=== PATIENT | female | born 1950 | race Caucasian/White ===

== ENCOUNTER 2019-06-02 21:53 | Inpatient (IN) | payer BC, MEDICARE ==
[~2019-06-02 21:53] MED LIST: ISOVUE-370 76%-LOCM 1 ML ONE
[2019-06-02 22:54] LABS: #Basophils 0.1 thou/uL (0.0-0.2); #Eosinphils 0.2 thou/uL (0.0-0.7); #Lymphocytes 3.2 thou/uL (1.20-3.40); #Monocytes 0.8 thou/uL (0.11-0.59); #Neutrophils 6.6 thou/uL (1.40-6.50); %Basophils 0.6 % (0.0-1.0); %Eosinophils 1.5 % (0.0-10.0); %Lymphocytes 29.9 % (21.0-51.0); %Monocytes 7.3 % (0.0-10.0); %Neutrophils 60.7 % (42.0-75.0); Hemoglobin 13.8 g/dL (12.0-16.0); Mean Corpuscular HGB CONC 32.2 g/dL (32.0-36.0); Mean Corpuscular Hemoglobin 31.2 pg (27.0-31.0); Mean Platelet Volume 7.9 fL (7.4-10.4); Platelet Count 256 thou/uL (130-400); Red Blood Cell (RBC) Count 4.43 mill/uL (4.20-5.40); White Blood Cell (WBC) Count 10.9 thou/uL (4.8-10.8)
[2019-06-02 23:16] LABS: ALT (SGPT) 14 U/L (8-55); AST (SGOT) 18 U/L (5-34); Albumin 3.3 g/dL (3.4-4.8); Alkaline Phosphatase 126 U/L (40-150); Anion Gap 16 mmol/L (10-20); BUN (Urea Nitrogen) 14 mg/dL (9.8-20.1); Bilirubin, Total 0.7 mg/dL (0.2-1.2); Calc. Creatinine Clearance 0 mL/min (70-130); Calcium 8.9 mg/dL (7.8-10.44); Carbon Dioxide 22 mmol/L (23-31); Chloride 102 mmol/L (98-107); Estimated GFR-MDRD 88; Globulin 2.7 g/dL (2.4-3.5); Glucose 105 mg/dL (80-115); Potassium 3.6 mmol/L (3.5-5.1); Sodium 136 mmol/L (136-145)
--- NOTE | 2019-06-03 00:04 | CT ---
CT ABDOMEN AND PELVIS WITH IV CONTRAST: 06/02/19 HISTORY: Urinary retention, abdominal pain. FINDINGS: Comparison is made with a noncontrasted exam of 4:54 p.m. from [facility]. There has been interval placement of a Wise catheter in the urinary bladder with decompression of th e hydronephrosis. There is enhancement of the joshua of the ureters. There is scarring of the left kid frederick. No renal mass is seen. There are atelectatic changes of the lung bases. Gallstones are again seen. The liver demonstrates de creased attenuation compared to the spleen consistent with fatty infiltration. No hepatic mass or ab normal biliary ductal dilatation identified. The spleen, pancreas, and adrenal glands are normal. No free air, free fluid or lymphadenopathy is seen in the abdomen or pelvis. There are vascular calci fications without evidence of aneurysmal dilatation or dissection of the abdominal aorta is seen. The small bowel loops are not abnormally dilated. A normal appearing appendix is present. There is si gmoid diverticulosis without diverticulitis. The patient is post hysterectomy. There are degenerativ e changes in the spine. IMPRESSION: 1. Cholelithiasis. 2. Fatty liver. 3. Interval placement of a Wise catheter in the urinary bladder with resolution of hydrouretero nephrosis since earlier exam of same date. 4. Enhancement of the ureter joshua suspicious for UTI. POS: DORA
--- NOTE | 2019-06-03 02:54 | CON ---
DATE OF CONSULTATION: This is Seth Huber PA-C dictating a report for Bruce Eaton MD. This is a 50-minute initial patient evaluation, in which greater than 50% of the exam was spent in counseling and coordinating the patient's care. Remainder of the exam was spent in review of the patient's medical records and review of appropriate imaging studies. CHIEF COMPLAINT: Generalized weakness with immobility over the past 3 to 4 months. HISTORY OF PRESENT ILLNESS: Ms. Palacios is a 69-year-old female, who presents to [facility] for the above complaints. Her niece is at bedside and apparently provides a lot of her care. The patient has a very complex medical history. Briefly, the patient over the past 4 or more months, has had difficulty ambulating, balance difficulties, and progressive weakness in all the extremities, worse in the legs than the arms. She has dealt with low back and bilateral hip pain with nondermatomal bilateral leg pain for likely more than a year, and she was placed on antidepressants and perhaps some narcotics that led to her being admitted to psychiatric units in the [facility]. The patient's family wanted the patient transferred back locally so that they could see her more often. Therefore, she was transferred to [place]. Nonetheless, she has been working with her physical therapy to help strengthen all the extremities, though again she has been nonambulatory over the past at least 3 months. She has also noticed urinary retention and fecal incontinence since that time. The patient and her niece are unclear on what her official diagnosis has been in regard to the generalized weakness, though states that she may have a component of cervical spinal stenosis. She has not had recent imaging of the cervical or thoracic spines. The patient isn't complaining much in the way of pain at this time. She also notes a long-standing history of intermittent neck pain, but no radicular symptoms into the arms. She has also noticed swallowing difficulties. She has a history of bleeding ulcer and hiatal hernia that may be contributing to her swallowing difficulties. The patient is apparently not on any blood thinners. Review of the patient's lumbar spine MRI shows some degenerative disk disease throughout the entire lumbar spine and some disk bulges at L5-S1, but nothing that is significantly compressive either centrally or foraminally that would explain the patient's stool, bowel and bladder issues, nor would it really explain the patient's subjective leg weakness. There does not appear to be any acute fracture noted on the STIR imaging or in review of the patient's abdominal CT scan. PHYSICAL EXAMINATION: The patient is awake, alert, and appropriate. She does not like to participate much in the exam and her niece provides a lot of the history, although she is oriented to person, place, and time. GCS is 15. She is a little bit sleepy as she has gotten some narcotic pain medication recently. She follows commands equally in all extremities. She has generalized weakness to all the extremities, but I would classify this as mild, and with good encouragement, she appears to have again mild weakness throughout all the extremities. Rajendra's is negative bilaterally. She also has random areas of hypersensitivity into the thighs and into the bilateral hands. She appears to have some contracture of the extension of the bilateral feet, but she is able to participate in dorsiflexion and plantar flexion, again, only has mild weakness bilaterally. She has intact sensation to light touch throughout the bilateral lower extremities. She does not appear to have any tenderness of the cervical spine. She has a Wise catheter in place and there is significant sediment and discolored urine in the Wise bag. IMPRESSION/DIAGNOSES: 1. Weakness of all the extremities, worse in the legs than the arms. 2. Impaired mobility. 3. History of bleeding ulcer. 4. Questionable psychiatric issue impeding ADLs. PLAN: At this time, I have discussed the patient's case and imaging with Dr. Eaton. There does not appear to be anything significantly compressive in the lumbar spine to explain the patient's symptoms. We will order urgent MRIs of the cervical and thoracic spines without contrast to determine if there is any other type of spinal cord compression. Otherwise, our medical colleagues will admit the patient and help with her urinary issues and help with low back pain control. We will follow up on her MRIs, but again I do not find anything emergent at this time given that the patient's symptoms have been longstanding. Please call with any changes in the patient's neurologic status. Job ID: [id number]
[2019-06-03 03:46] VITALS: BMI 24.0
[2019-06-03 04:11] LABS: Bacteria/HPF 3+ HPF (None Seen); Bilirubin Negative (Negative); Blood, Urine 3+ (Negative); Clarity Extra Turbid (Clear); Glucose, Urine (Dipstick) Normal (Negative); Leukocyte 500 Leu/uL (Negative); Nitrite Negative (Negative); Protein, Urine (Dipstick) 300 mg/dL (Neg-Trace); RBC/HPF Greater than 50 HPF (0-3); Squamous Epithelial None Seen HPF (0-3); Urobilinogen Normal mg/dL (Less than 2); WBC/HPF Greater than 50 HPF (0-3)
[2019-06-03 04:16] LABS: Urine Culture Reflex Yes Yes
[2019-06-03] MEDS ORDERED: Ondansetron ODT 4 MG TAB PO PRN (04:29)
[2019-06-03] MEDS ORDERED: Acetaminophen 325 MG TAB PO PRN (04:29)
[2019-06-03] MEDS ORDERED: hydrALAZINE 20 MG/ML VIAL SLOW IVP PRN (04:29)
[2019-06-03] MEDS ORDERED: HYDROcodone/Acetaminophen 5/325 mg Tablet PO PRN (04:29)
[2019-06-03] MEDS ORDERED: Ondansetron PF 4 MG/2 ML Vial IVP PRN (04:29)
[2019-06-03] MEDS ORDERED: Enoxaparin Sodium 40 MG/0.4 ML SYRINGE SC SCH ×2 (04:45→21:00)
--- NOTE | 2019-06-03 05:03 | HP ---
PRIMARY CARE PHYSICIAN: Dr. Dallas. CHIEF COMPLAINT: Progressive lower extremity weakness. HISTORY OF PRESENT ILLNESS: Ms. Palacios is a pleasant 69-year-old female who is an extremely poor historian. She says that if her niece was here, she would be able to give me more information, but apparently Ms. Palacios has a history of cervical spine disease, which has been known for sometime. Apparently, she, at some point, had difficulty with ambulation and [place] [facility] [place]. She says that she has gotten progressive pain in her back and legs as well as in the last 40 days she has been so weak that she has been practically bed-bound and also had difficulty with urinary retention and incontinence as well as fecal incontinence. She says that the pain got so bad that she could barely take it and this is when she asked the staff at the facility to bring her to the emergency room. In the ER in [place], she had a CT of the abdomen and pelvis, showing some cholelithiasis and fatty liver and also resolution of a distended urinary bladder. She had a Wise catheter placed there due to the urinary retention and she was transferred to our facility for further evaluation. She has been seen already in the ER by the Neurosurgery team and the plan is for possible surgical intervention after repeat MRIs have been obtained. Otherwise, the patient admits to falling frequently in the past before she was placed in a nursing facility. She denies any chest pain or difficulty breathing and no other symptoms. REVIEW OF SYSTEMS: CONSTITUTIONAL: No fevers or chills. No night sweats. No weight loss. HEENT: No headaches, no dizziness, no visual changes, no sore throat, no rhinorrhea, no neck pain, no adenopathy. PULMONARY: No hemoptysis, no cough, no wheezing. CARDIOVASCULAR: She denies any chest pain. No shortness of breath, no PND, no orthopnea. GASTROINTESTINAL: No abdominal pain, no nausea, no vomiting, no change in bowels. GENITOURINARY: No urinary frequency, hematuria, no hesitancy. MUSCULOSKELETAL: She notes lower extremity weakness bilaterally, but no joint pains. NEUROLOGIC: She has weakness in both her upper and lower extremities as well as urinary retention. SKIN AND INTEGUMENT: No skin changes. No rashes. PAST MEDICAL HISTORY: Significant for gastroesophageal reflux disease, anxiety and depression, coronary artery disease, hypothyroidism, and schizophrenia. PAST SURGICAL HISTORY: She has had hysterectomy. ALLERGIES: TO CODEINE. SOCIAL HISTORY: She is , has 2 children. She is a nonsmoker. She resides at the [facility]. With regard to code status, she would want CPR, but she would not want to be put on a ventilator, so it is do not intubate. FAMILY HISTORY: Negative. MEDICATIONS: Unknown. PHYSICAL EXAMINATION: GENERAL: She is alert and oriented. She appears to be in no acute distress. She is well developed and well nourished. VITAL SIGNS: Blood pressure was 98/76, heart rate 90, respiratory rate of 18, temperature is 98.7. HEENT: Pupils are equal, round, and reactive. Extraocular muscles are intact. Sclerae anicteric. Throat; no erythema, no exudates. NECK: No adenopathy, no bruits. LUNGS: Clear. There is no wheezing, no rales, no rhonchi. CARDIOVASCULAR: She has a normal S1 and S2. There is no S3 or S4. No murmurs, clicks, or rubs. ABDOMEN: Obese. It is soft, nontender, and nondistended. Positive for bowel sounds. No rebound or guarding. EXTREMITIES: There is no clubbing or cyanosis. No edema. NEUROLOGICAL: She has some weakness in both lower extremities as well as decrease in the ability to dorsiflex the foot. Her hand potter strength in both hands is also weaker as well, although she is able to abduct and adduct her arms. LABORATORY RESULTS: Sodium is 136, potassium 3.6, chloride is 102, CO2 is 22, BUN of 14, creatinine 0.67, glucose is 105. White blood cell count 10.9, hemoglobin 13.8, hematocrit is 43, platelet count is 256. On her EKG, she has a left bundle-branch block. ASSESSMENT: 1. This is a pleasant 69-year-old female who presents with progressive weakness in her lower extremities and pain as well as weakness in her upper extremities and known cervical spine disease. She is currently being evaluated by Neurosurgery and could potentially require surgery. We will continue to help with symptom management with regard to pain. 2. History of cardiomyopathy. In her records, we can see that she had a cardiac catheterization back in 2011. At that time, it demonstrated minimal coronary artery disease, but evidence of a cardiomyopathy. On her EKG, she has a left bundle-branch block. She may require surgery. Therefore, we will get an echocardiogram to assess her ejection fraction and she could potentially require Cardiology evaluation if surgery is needed. 3. Hypothyroidism. She appears to be clinically euthyroid. We will need to reconcile and restart home medications as indicated. 4. She will be placed on deep venous thrombosis as well as gastrointestinal prophylaxis. Job ID: [id number]
[2019-06-03] MEDS ORDERED: Sodium Chloride 0.9% 1,000 ML IV SCH (05:15)
[2019-06-03] MEDS: cefTRIAXone\\ROCEPHIN 1 GM in Sodium Chloride 0.9% 100 ML IVPB SCH (05:31)
--- NOTE | 2019-06-03 10:44 | MRI ---
MRI thoracic spine without contrast: 06/03/2019 HISTORY: Weakness TECHNIQUE: Multiplanar multisequence MR imaging of the thoracic spine obtained without contrast FINDINGS: The sagittal STIR imaging demonstrates no focal area of osseous marrow edema. Thoracic vert ebral body height and alignment appears within normal limits. There is no anterolisthesis or retrolisthesis seen within the thoracic spine. There is no significant central canal stenosis at any level within the thoracic spine. There is mild disc space narrowing, disc desiccation, and disc bulge at T3-4 and T5-6 with minimal as sociated central canal stenosis. Incidental note is made of cholelithiasis. No abnormal signal intensity is identified within the thor acic cord. No significant neural foraminal stenosis is noted at any level on either side within the thoracic spine.. There is a focal area of cortical thinning/scarring involving the upper pole of the left kidney. Ther e is a tiny T2 hypointense lesion within the upper pole of the left kidney measuring 4 mm. This does not meet criteria for a cyst but is very small and difficult to fully characterize. Perhaps a fo llow-up renal ultrasound would be beneficial. IMPRESSION: No significant central canal or neural foraminal stenosis noted within the thoracic spine . Small lesion within the upper pole left kidney which may be better assessed via ultrasound. Cholelith iasis.
--- NOTE | 2019-06-03 11:09 | CT ---
CT cervical spine: 06/03/2019 COMPARISON: None HISTORY: Cervical radiculopathy TECHNIQUE: Axial CT imaging at 2.5 mm intervals from skull base through lung apices with coronal and sagittal reformatted imaging FINDINGS: The imaged lung apices are unremarkable. Occipital condyles are intact. There is prominent degenerative change at the atlantoaxial interspace. Evaluation for central canal and/or neural foraminal stenosis was better performed on recent MRI. C2-3: There is disc space narrowing with degenerative endplate change and anterior osteophyte formati on. Mild disc bulge. No osseous cause of significant central canal or neural foraminal stenosis. C3-4: Disc space narrowing with degenerative endplate change and disc bulge present. Bilateral uncove rtebral osteophyte formation with mild left and moderate right neural foraminal stenosis. C4-5: Disc space narrowing and degenerative endplate change with posterior disc osteophyte complex an d prominent bilateral uncovertebral osteophyte. Severe central canal and bilateral neural foraminal stenosis. C5-6: There is disc space narrowing with degenerative endplate change and disc osteophyte complex cau sing moderate/severe central canal stenosis. Uncovertebral osteophyte formation noted bilaterally with moderate/severe bilateral neural foraminal stenosis, right greater than left. C6-7: There is disc space narrowing and degenerative endplate change with posterior disc osteophyte c omplex causing at least moderate central canal stenosis. Uncovertebral osteophyte formation noted with severe left and moderate right neural foraminal stenosis C7-T1: No osseous cause of significant central canal or neural foraminal stenosis. No worrisome lytic or blastic bone lesion. No acute fracture or dislocation. IMPRESSION: Severe cervical spine degenerative change as detailed above.
[2019-06-03 11:21] LABS: #Eosinphils 0.1 thou/uL (0.0-0.7); #Lymphocytes 3.3 thou/uL (1.20-3.40); #Monocytes 0.7 thou/uL (0.11-0.59); %Basophils 0.2 % (0.0-1.0); %Eosinophils 1.5 % (0.0-10.0); %Lymphocytes 35.8 % (21.0-51.0); %Neutrophils 54.5 % (42.0-75.0); Hemoglobin 12.3 g/dL (12.0-16.0); Mean Corpuscular HGB CONC 32.3 g/dL (32.0-36.0); Mean Corpuscular Hemoglobin 31.3 pg (27.0-31.0); Mean Corpuscular Volume 96.8 fL (78.0-98.0); Mean Platelet Volume 7.7 fL (7.4-10.4); Platelet Count 244 thou/uL (130-400); RBC Distribution Width 14.9 % (11.5-14.5); Red Blood Cell (RBC) Count 3.91 mill/uL (4.20-5.40); White Blood Cell (WBC) Count 9.2 thou/uL (4.8-10.8)
[2019-06-03 11:29] LABS: INR-International Normal Ratio 1.1; PTT 36.6 SEC (22.9-36.1); Prothrombin Time 14.6 SEC (12.0-14.7)
[2019-06-03] MEDS: Mometasone/Formoterol 120 PUFF INHALER INH SCH ×2 (11:29→20:04)
[2019-06-03 11:42] LABS: ALT (SGPT) 14 U/L (8-55); AST (SGOT) 17 U/L (5-34); Albumin 2.8 g/dL (3.4-4.8); Alkaline Phosphatase 104 U/L (40-150); Anion Gap 13 mmol/L (10-20); BUN (Urea Nitrogen) 10 mg/dL (9.8-20.1); Bilirubin, Total 0.5 mg/dL (0.2-1.2); Calc. Creatinine Clearance 101 mL/min (70-130); Calcium 8.2 mg/dL (7.8-10.44); Carbon Dioxide 23 mmol/L (23-31); Chloride 100 mmol/L (98-107); Estimated GFR-MDRD Greater than 90; Globulin 2.7 g/dL (2.4-3.5); Glucose 79 mg/dL (80-115); Potassium 3.6 mmol/L (3.5-5.1); Protein, Total 5.5 g/dL (6.0-8.3); Sodium 132 mmol/L (136-145)
--- NOTE | 2019-06-03 11:46 | MRI ---
CERVICAL SPINE MRI WITHOUT CONTRAST: Date: 06/03/19 COMPARISON: None. HISTORY: Bilateral leg weakness. TECHNIQUE: Multiplanar, multisequence MR imaging of the cervical spine obtained without contrast. FINDINGS: Detailed assessment on the sagittal and axial imaging is limited on the basis of significant persiste nt patient motion artifact. The STIR imaging demonstrates no focal area of osseous marrow edema. Cran iocervical junction and cervicothoracic junction appear intact. There is significant degenerative kenny nge at the atlantoaxial interspace. C2-3: There is disc space narrowing with disc desiccation, mild disc bulge, and at least mild centra l canal stenosis. Bilateral facet and uncovertebral osteophyte formation with mild/moderate bilateral neural foraminal stenosis. C3-4: There is disc space narrowing, disc desiccation, and disc bulge with moderate/severe central c anal stenosis. There is significant bilateral neural foraminal stenosis on the basis of facet and unc overtebral osteophyte formation. C4-5: There is disc space narrowing, disc desiccation, and disc osteophyte complex. There is severe central canal stenosis and severe bilateral neural foraminal stenosis on the basis of facet and uncov ertebral osteophyte formation. C5-6: There is disc space narrowing, disc desiccation, and disc osteophyte complex with severe centr al canal stenosis. Bilateral facet and uncovertebral osteophyte formation noted with severe bilateral neural foraminal stenosis. C6-7: Disc space narrowing, disc desiccation, and disc osteophyte complex causes moderate/severe jaden tral canal stenosis. On the basis of facet and uncovertebral osteophyte formation, there is severe le ft and moderate right neural foraminal stenosis. C7-T1: No significant central canal or neural foraminal stenosis. Motion artifact limits detailed assessment of the cervical cord. Of note, there is a degree of cord flattening on the basis of central canal stenosis at C3-4, C4-5, C 5-6, and C6-7, most prominent at C4-5 and C5-6. IMPRESSION: Severe degenerative change involving the cervical spine with multilevel severe central canal and neur al foraminal stenosis as detailed above. Detailed assessment is limited secondary to persistent patie nt motion artifact. POS: OFF
[2019-06-03 12:00] LABS: Creatinine, Urine 47.4 mg/dL (47-110)
--- NOTE | 2019-06-03 13:28 | ULT ---
Bilateral lower extremity venous Doppler ultrasound: 06/03/2019 COMPARISON: None HISTORY: Impaired mobility, assess for deep venous thrombosis TECHNIQUE: Multiplanar grayscale sonographic imaging of the venous structures of bilateral lower extr emities obtained with color flow and spectral analysis FINDINGS: The right common femoral vein, greater saphenous vein, profunda femoral vein, femoral vein, popliteal vein, and posterior tibial vein. There is extensive deep venous thrombosis involving the left lower extremity, including the left comm on femoral vein, femoral vein, and popliteal vein with extension into the posterior tibial vein. Greater saphenous vein and profunda femoral vein appear patent. IMPRESSION: Extensive left lower extremity deep venous thrombosis. Dr. Raygoza made aware via phone at 1:25 PM 06/03/2019.
[2019-06-03] MEDS ORDERED: Ketorolac Tromethamine 30 MG/ML VIAL IVP PRN ×2 (13:56→17:09)
--- NOTE | 2019-06-03 14:01 | PDOC.HOSPP ---
- Subjective Encounter Date: 06/03/19 Subjective: she is still complaining of pain from neck down to her lower back, she has no sob, no chest pain. - Objective Vital Signs & Weight: Vital Signs (12 hours) Temp Pulse Resp BP Pulse Ox 06/03/19 13:00 98.0 F 91 16 110/72 94 L 06/03/19 08:44 98.0 F 92 16 112/73 98 06/03/19 08:00 94 L 06/03/19 05:32 93 103/66 06/03/19 02:52 97.4 F L 94 18 107/71 94 L 06/03/19 02:05 94 L Weight Weight 144 lb 9 oz I&O: 06/02/19 06/03/19 06/04/19 06:59 06:59 06:59 Intake Total 500 Output Total 300 Balance 200 Result Diagrams: 06/03/19 11:10 06/03/19 11:10 Hospitalist ROS - Medication Medications: Active Medications Generic Name Dose Route Start Last Admin Trade Name Freq PRN Reason Stop Dose Admin Hydrocodone Bitart/Acetaminophen 1 tab 06/03/19 04:29 06/03/19 12:06 [place] 5/325 PO 1 tab Q4H PRN Administration Moderate Pain (4-6) Ceftriaxone Sodium 1 gm/ 100 mls @ 200 mls/hr 06/03/19 06:00 06/03/19 05:31 Sodium Chloride IVPB 100 mls 0600 ANDREA Administration Mometasone Furoate/Formoterol Fumar 2 puff 06/03/19 06:30 06/03/19 11:29 Dulera 200 Mcg/5 Mcg Inhaler INH Not Given BID-RT ANDREA - Exam General Appearance: NAD, awake alert Eye: PERRL, anicteric sclera ENT: normocephalic atraumatic, no oropharyngeal lesions, moist mucosa Neck: symmetric Heart: RRR, no murmur, no gallops, no rubs, normal peripheral pulses Respiratory: CTAB, no wheezes, no rales, no ronchi, normal chest expansion, no tachypnea, normal percussion Gastrointestinal: soft, non-tender, non-distended, normal bowel sounds, no palpable masses, no hepatomegaly, no splenomegaly, no bruit Extremities: 1+ LE edema (on the left leg, with extended foot.) Skin: normal turgor Neurological: CN's grossly intact, normal sensation to touch, no weakness, no focal deficits, no new deficit Hosp A/P (1) DVT (deep venous thrombosis) Code(s): I82.409 - ACUTE EMBOLISM AND THOMBOS UNSP DEEP VN UNSP LOWER EXTREMITY Status: Acute (2) Hydronephrosis Code(s): N13.30 - UNSPECIFIED HYDRONEPHROSIS Status: Acute (3) UTI (urinary tract infection) Status: Acute (4) Cervical stenosis of spine Code(s): M48.02 - SPINAL STENOSIS, CERVICAL REGION Status: Chronic (5) Back pain Code(s): M54.9 - DORSALGIA, UNSPECIFIED Status: Chronic - Plan musculoskeletal---she has neck pain, and back pain, will start Toradol, increase hydrocodone ( although she has an allergy to codeine she was able to tolerate the hydrocodone ). Neurosurgery saw her and she needs to have surgery on Wednesday. DVT--extensive DVT in Left LE, reported to me an hour ago, I have discussed that finding with Neurosurgery, there was an emphasis on the need for surgery and that an IVC filter should be done and no anticoagulation should be used so that the surgery is not delayed. Renal ---UTI--on Rocephin, Nephro is following, renal ultrasound and urinary studies are being done. IVF will be stopped since she is eating and labs are good. Cradiac--echocardiogram is pending.
--- NOTE | 2019-06-03 14:06 | PRG ---
DATE OF SERVICE: 06/03/2019 This is a 50-minute initial hospital visit note, in which 50 minutes were spent reviewing the imaging record, evaluation and examination of the patient, formulation of plan. Greater than 50% time was spent in counseling on Fe Palacios. CHIEF COMPLAINT: Concern of quadriparesis with progressive urinary retention, urinary tract infection, and nephropathy with prolonged immobilization. HISTORY OF PRESENT ILLNESS: Ms. Palacios is a 69-year-old woman, who evidently has been hospitalized as of late multiple times for yet unknown reasons. She was transferred here after lumbar spine MRI in [place] was done, which really revealed no worrisome stenosis. However, the patient has had what appears to be progressive quadriparesis with essentially not being able to ambulate for weeks now. She also was found to have a florid urinary tract infection along with hydronephrosis. Upon transfer, I requested cervical spine MRI and thoracic spine MRI, where the thoracic MRI demonstrates no evidence of worrisome neural element compromise, and the cervical MRI demonstrates multilevel severe stenosis. I suspect that she has essentially a myelopathic presentation as the reason for her quadriparesis and urinary issues. PHYSICAL EXAMINATION: She is alert. She is appropriate. She has a somewhat blunted affect. She does lift both upper extremities above off the bed in an antigravity fashion and appears to have mild hand intrinsic weakness. However, in the lower extremity, she does not move her left lower extremity for me at all, and her right lower extremity is significantly weak. Again, this is bilateral leg greater than bilateral upper extremity weakness. IMPRESSION AND PLAN: I have let the patient and her family member in [place] know via phone call that she has a myelopathy that needs to be addressed surgically. If we do nothing, then there is no hope for this patient to regain any neurologic function in my opinion. Further, this leads to increasing risk for urosepsis, given her significant urinary retention, hydronephrosis, and urinary tract infection. We will obtain an ultrasound of the lower extremities and continue on prophylactic Lovenox at this point. We will also obtain a CT scan of the cervical spine for operative planning. The surgery is to be done this upcoming Wednesday, which will give us time to treat her urinary tract infection and have Nephrology weigh in regard to her nephropathy. The surgery will be a C3-C7 ACDF followed by C2-C7 laminectomy, posterior facetectomy, foraminotomies with C3-C7 fusion. I will discuss this more with the patient and her family, but suffice to say this is a large surgery, but the patient's stenosis is quite profound and at her age, again, if nothing is done, her prognosis is exceedingly poor for any type of recovery. DIAGNOSES: 1. Multilevel cervical stenosis with myelopathy. 2. Urinary tract infection with nephropathy. Job ID: [id number]
[2019-06-03] MEDS: HYDROcodone/Acetaminophen 5/325 mg Tablet PO PRN ×2 (15:10→20:47)
[2019-06-03] MEDS ORDERED: Zolpidem Tartrate 5 MG TAB PO PRN (17:10)
--- NOTE | 2019-06-03 23:27 | CON ---
DATE OF CONSULTATION: 06/03/2019 REQUESTING PHYSICIAN: Dr. Garcia. OTHER CONSULTING PHYSICIAN: Dr. Eaton. PRIMARY CARE PHYSICIAN: Dr. Mary Watts. CHIEF COMPLAINT: Extremity weakness. HISTORY OF PRESENT ILLNESS: The patient is a 69-year-old woman with several weeks or perhaps even months of progressive quadriparesis. It has been few weeks since she has been able to walk. She is developing a flexion contracture of the right ankle, has developed fecal incontinence and urinary retention. She is found to have multilevel cervical spinal canal stenosis and is currently receiving Rocephin for urinary tract infection prior to surgical decompression. Screening lower extremity Dopplers demonstrated extensive deep venous thrombosis in her left leg. PAST MEDICAL HISTORY: Significant for GE reflux disease, coronary artery disease, hypothyroidism, anxiety, depression, and schizophrenia. HOME MEDICATIONS: 1. Carafate. 2. Seroquel. 3. Protonix. 4. Ativan. 5. Advair Diskus. 6. Motrin. ALLERGIES: SHE REPORTS ALLERGIES TO CODEINE AND PINEAPPLE. SOCIAL HISTORY: She does not smoke. REVIEW OF SYSTEMS: Positive for the above-mentioned extremity weakness and decreased mobility. PHYSICAL EXAMINATION: GENERAL: She is somewhat flat in affect and she is essentially bed-bound. VITAL SIGNS: Heart rate is 91, blood pressure 110/72, and temperature is 98.0. On 1 L nasal cannula, O2 saturations of 94% to 98%. LUNGS: She has clear breath sounds. HEART: Regular rate and rhythm. ABDOMEN: Soft and nontender. EXTREMITIES: She has weakness in all 4 extremities. She has a footdrop on the right side. There is no obvious swelling or tenderness to her extremities. Her venous Doppler shows a clear right-sided system but thrombus extending from the posterior tibial to the common femoral vein on the left. IMAGING: Her CT scan of the abdomen shows that her right and left renal veins drain into the inferior vena cava about the level of the midbody of L1. LABORATORY DATA: Her white count was 10.9, hemoglobin 13.8, and platelets 256,000. PT was 14.6, INR 1.1, and PTT 36.6. Electrolytes were normal. Creatinine 0.67. Albumin 3.3. IMPRESSION AND RECOMMENDATION: Deep venous thrombosis in a patient with at least two contraindications to anticoagulation, her impending cervical spine decompression and her recent GI bleeding and it is apt to be sometime before she will be a candidate for anticoagulation or her mobility will be sufficiently recovered that she will no longer be at risk for DVT. We will plan on vena cava filter placement. Job ID: [id number]
[2019-06-04 04:24] LABS: #Eosinphils 0.3 thou/uL (0.0-0.7); #Lymphocytes 2.7 thou/uL (1.20-3.40); #Monocytes 0.7 thou/uL (0.11-0.59); #Neutrophils 3.9 thou/uL (1.40-6.50); %Basophils 0.3 % (0.0-1.0); %Eosinophils 3.6 % (0.0-10.0); %Lymphocytes 35.6 % (21.0-51.0); %Monocytes 8.8 % (0.0-10.0); %Neutrophils 51.7 % (42.0-75.0); Hemoglobin 12.3 g/dL (12.0-16.0); Mean Corpuscular HGB CONC 33.8 g/dL (32.0-36.0); Mean Corpuscular Hemoglobin 32.3 pg (27.0-31.0); Mean Corpuscular Volume 95.6 fL (78.0-98.0); Mean Platelet Volume 7.8 fL (7.4-10.4); Platelet Count 230 thou/uL (130-400); RBC Distribution Width 14.6 % (11.5-14.5); Red Blood Cell (RBC) Count 3.81 mill/uL (4.20-5.40); White Blood Cell (WBC) Count 7.5 thou/uL (4.8-10.8)
[2019-06-04 04:41] LABS: Anion Gap 12 mmol/L (10-20); BUN (Urea Nitrogen) 9 mg/dL (9.8-20.1); Calc. Creatinine Clearance 107 mL/min (70-130); Calcium 8.5 mg/dL (7.8-10.44); Carbon Dioxide 25 mmol/L (23-31); Chloride 100 mmol/L (98-107); Estimated GFR-MDRD Greater than 90; Glucose 94 mg/dL (80-115); Potassium 3.2 mmol/L (3.5-5.1); Sodium 134 mmol/L (136-145)
[2019-06-04] MEDS: cefTRIAXone\\ROCEPHIN 1 GM in Sodium Chloride 0.9% 100 ML IVPB SCH (06:08)
[2019-06-04] MEDS ORDERED: Lidocaine 1% (PF) 30 ML VIAL ONE (07:10)
[2019-06-04] MEDS ORDERED: Iopamidol 370 76% 50 ML VIAL FS ONE (07:26)
[2019-06-04] MEDS ORDERED: Enoxaparin Sodium 40 MG/0.4 ML SYRINGE SC SCH (09:00)
--- NOTE | 2019-06-04 09:04 | OP ---
DATE OF PROCEDURE: 06/04/2019 PROCEDURE PERFORMED: Inferior venacavogram and Cordis Trapease inferior vena cava filter placement with ultrasonographic and fluoroscopic guidance. PREOPERATIVE DIAGNOSIS: Left lower extremity deep venous thrombosis with contraindication to anticoagulation. POSTOPERATIVE DIAGNOSIS: Left lower extremity deep venous thrombosis with contraindication to anticoagulation. ANESTHESIA: 1% lidocaine, local anesthesia. INDICATIONS: The patient is a 69-year-old woman, developing quadriparesis over the last several weeks or even months. That is attributed to multilevel cervical spinal canal stenosis. Screening lower extremity Doppler showed extensive DVT formation in her left lower extremity. She has had her recent episode of GI bleeding and is to soon undergo cervical spinal decompression constituting contraindications to anticoagulation. FINDINGS: The renal veins drained into the vena cava at the level of the lower edge of L1. The superior tip of the filter was placed little above the midbody of L2. TOTAL CONTRAST USED: 10 mL of Isovue. TOTAL FLUOROSCOPY TIME: 1.7 minutes. DESCRIPTION OF PROCEDURE: After informed consent was obtained, the patient was positioned on the catheterization laboratory technician table and her groins were prepped and draped in sterile fashion. The patient's femoral pulse was palpated and then ultrasonographically, the femoral vasculature was identified. Compressibility of the common femoral vein was verified. The skin and subcutaneous tissues in line with the femoral vein were infiltrated with lidocaine and then with ultrasonographic guidance, the common femoral vein was cannulated with a large-bore needle. A guidewire was placed and caval positioning of the wire was confirmed by fluoroscopy. A small skin alex was made and dilator and introducer sheath were placed. The tip of the introducer sheath was positioned at the lower edge of L1 and venacavogram was performed with 10 mL of Isovue, which demonstrated drainage of the renal veins. The right renal vein drain into the vena cava at the inferior edge of L1 and the left renal vein drained into it a little superior to that. The tip of the introducer sheath was withdrawn back to the level of the mid body of L2 and the filter device was advanced through it when it began to emerge from the sheath. The sheath was withdrawn and then the sheath was removed and hemostasis was achieved with direct pressure. The patient was returned to her room. Job ID: [id number]
[2019-06-04] MEDS: Mometasone/Formoterol 120 PUFF INHALER INH SCH ×2 (09:26→19:11)
[2019-06-04] MEDS ORDERED: Potassium Chloride 20 MEQ TAB PO SCH (09:30)
--- NOTE | 2019-06-04 09:40 | PDOC.HOSPP ---
- Subjective Encounter Date: 06/04/19 Subjective: She is post IVC filter placement today. She does not complain of any pain, her pain did improve since yesterday. - Objective Vital Signs & Weight: Vital Signs (12 hours) Temp Pulse Resp BP Pulse Ox 06/04/19 04:11 97.5 F L 90 16 121/77 94 L Weight Weight 144 lb 9 oz I&O: 06/03/19 06/04/19 06/05/19 06:59 06:59 06:59 Intake Total 500 1650 Output Total 300 500 400 Balance 200 1150 -400 Result Diagrams: 06/04/19 04:01 06/04/19 04:01 Hospitalist ROS - Medication Medications: Active Medications Generic Name Dose Route Start Last Admin Trade Name Freq PRN Reason Stop Dose Admin Hydrocodone Bitart/Acetaminophen 2 tab 06/03/19 13:59 06/03/19 20:47 [place] 5/325 PO 2 tab Q4H PRN Administration Moderate Pain (4-6) Enoxaparin Sodium 40 mg 06/04/19 09:00 06/04/19 09:23 Lovenox SC 40 mg DAILY ANDREA Administration Ceftriaxone Sodium 1 gm/ 100 mls @ 200 mls/hr 06/03/19 06:00 06/04/19 06:08 Sodium Chloride IVPB 100 mls 0600 ANDREA Administration Mometasone Furoate/Formoterol Fumar 2 puff 06/03/19 06:30 06/04/19 09:26 Dulera 200 Mcg/5 Mcg Inhaler INH Not Given BID-RT ANDREA Zolpidem Tartrate 5 mg 06/03/19 17:10 06/03/19 20:44 Ambien PO 5 mg HSPRN PRN Administration Insomnia - Exam General Appearance: NAD, awake alert Eye: PERRL, anicteric sclera ENT: normocephalic atraumatic, no oropharyngeal lesions, moist mucosa Neck: supple, symmetric, no JVD, no thyromegaly, no lymphadenopathy, no carotid bruit Heart: RRR, no murmur, no gallops, no rubs, normal peripheral pulses Respiratory: CTAB, no wheezes, no rales, no ronchi, normal chest expansion, no tachypnea, normal percussion Gastrointestinal: soft, non-tender, non-distended, normal bowel sounds, no palpable masses, no hepatomegaly, no splenomegaly, no bruit Extremities: 1+ LE edema Skin: normal turgor, no lesions, no rashes Neurological: CN's grossly intact, normal sensation to touch, no weakness, no focal deficits, no new deficit Hosp A/P (1) DVT (deep venous thrombosis) Code(s): I82.409 - ACUTE EMBOLISM AND THOMBOS UNSP DEEP VN UNSP LOWER EXTREMITY Status: Acute (2) Hydronephrosis Code(s): N13.30 - UNSPECIFIED HYDRONEPHROSIS Status: Acute (3) UTI (urinary tract infection) Status: Acute (4) Cervical stenosis of spine Code(s): M48.02 - SPINAL STENOSIS, CERVICAL REGION Status: Chronic (5) Back pain Code(s): M54.9 - DORSALGIA, UNSPECIFIED Status: Chronic - Plan psych--she is on psych meds but we are unable to verify them, seems to be doing well off meds. musculoskeletal---she has neck pain, and back pain, will start Toradol, increase hydrocodone ( although she has an allergy to codeine she was able to tolerate the hydrocodone ). Neurosurgery saw her and she needs to have surgery on Wednesday.family is meeting with Dr Eaton at 10:00 am today her pain seems well controlled. DVT--extensive DVT in Left LE, reported to me an hour ago, I have discussed that finding with Neurosurgery, there was an emphasis on the need for surgery and that an IVC filter was done today and no anticoagulation should be used so that the surgery is not delayed. Renal ---UTI--on Rocephin, Nephro is following, renal ultrasound and urinary studies are being done. her k was low, will replace and repeat in am. Cradiac--echocardiogram is pending. in 2011 she was diagnosed with non ischemic CABIN OUTFITTER with EF of 35 %, I did contact our drupal web developer to read the echo done yesterday. since more then one month she wasn't very active but never had a problem with chest pain or sob as per her . I believe that she is at increased risk for jr-operative complications. I relayed that to her and to Dr Eaton.
[2019-06-04] MEDS ORDERED: traZODone HCl 50 MG TAB PO PRN (09:52)
--- NOTE | 2019-06-04 12:18 | PRG ---
DATE OF SERVICE: 06/04/2019 A 25-minute subsequent visit note. SUBJECTIVE: Suzanne has been found to have severe multilevel spinal cord compression as the culprit of why she has become progressively more quadriparetic over weeks. Her family is at baseline. We have extensively discussed the plan, which is an anterior-posterior surgical decompression from C3 through C7 postoperatively with possible extension up to C2 with decompression posteriorly. She has circumferential stenosis, and I should note that her CT or her MRI of the thoracic spine did not demonstrate any evidence of worrisome stenosis. Of note, she did have a cardiac dysfunction in 2011, and our medicine colleagues are kindly evaluating her in regard to her cardiac risk. We are continuing Lovenox at this point. Unfortunately, she was found to have a DVT extensively in her left lower extremity yesterday. This obviously led to an IVC filter. IVC filter placement yesterday. I am not surprised given the patient's prolonged immobilization. Goals, indications, risks, alternatives, and complications were discussed in detail regarding C3 through C7 ACDF and C3 through C7 laminectomy and fusion with possible extension of decompression up to C2. Understand that the risks are up to and including, but not limited to, wound healing issues such as infection, dehiscence, CSF leak, temporary and permanent neurologic deficit, medical and surgical complications that would require further intervention. They understand all these and wished that we proceed tomorrow. They also understand if we do nothing that she will likely progress to complete quadriplegia with terrible prognosis. DIAGNOSES: 1. Severe cervical stenosis with progressive myelopathy. 2. Extensive left lower extremity deep venous thrombosis. 3. History of ischemic cardiomyopathy. Job ID: [id number]
[2019-06-04] MEDS ORDERED: Magnesium 2 GM/50 ML 2 GM in Premix Bag 1 BAG IVPB SCH (19:45)
--- NOTE | 2019-06-04 21:26 | ULT ---
BILATERAL RENAL ULTRASOUND: History: Acute renal insufficiency. FINDINGS: The right kidney measures 11 cm in length and the left kidney measures 10 cm. No hydronephrosis is se en on either side. The urinary bladder is empty with Wise catheter in place. There is a 6 mm echogen ic focus in the left kidney, likely calculus. IMPRESSION: Probable nonobstructing left renal calculus. POS: [facility]
--- NOTE | 2019-06-05 00:37 | PRG ---
DATE OF SERVICE: 06/04/2019 SUBJECTIVE: A 69-year-old female being seen for acute kidney injury. The patient denies any nausea, vomiting, or chest pain. PHYSICAL EXAMINATION: GENERAL: The patient is awake and alert. VITAL SIGNS: Pulse 75, breathing 16, blood pressure was 112/76. GENERAL APPEARANCE AND MENTAL STATUS: Fair. HEAD/NECK: Normocephalic. Atraumatic. EYES: EOMI. No deformity. EARS: Clear. No ulcers. NOSE: Intact. No lesions. MOUTH: Clear. No discharge. THROAT: Clear. No exudate. LUNGS: Clear. No crackles. CARDIAC: S1, S2. No rub. ABDOMEN: Benign. Bowel sounds positive. GENITALIA/RECTUM: Wise absent. BACK/EXTREMITIES: Edema 0+. NEUROLOGICAL: Alert and motor intact. SKIN: LYMPHATICS: LABORATORY DATA: Show creatinine 0.5, potassium 3.2. ASSESSMENT: 1. Acute kidney injury with hydronephrosis, improved. 2. Left renal calculus, the patient will need Urology consultation. Hydrate aggressively. 3. Hypokalemia. Recommend high potassium diet. 4. Severe mitral regurgitation. The patient will need Cardiology evaluation. Job ID: [id number]
[2019-06-05 02:11] LABS: Hemoglobin 12.7 g/dL (12.0-16.0)
[2019-06-05 02:35] LABS: Anion Gap 13 mmol/L (10-20); BUN (Urea Nitrogen) 8 mg/dL (9.8-20.1); Calc. Creatinine Clearance 115 mL/min (70-130); Calcium 8.2 mg/dL (7.8-10.44); Carbon Dioxide 23 mmol/L (23-31); Chloride 101 mmol/L (98-107); Estimated GFR-MDRD Greater than 90; Glucose 97 mg/dL (80-115); Potassium 3.8 mmol/L (3.5-5.1); Sodium 133 mmol/L (136-145)
[2019-06-05] MEDS: cefTRIAXone\\ROCEPHIN 1 GM in Sodium Chloride 0.9% 100 ML IVPB SCH (06:07)
[2019-06-05] MEDS: Mometasone/Formoterol 120 PUFF INHALER INH SCH ×2 (06:20→18:42)
[2019-06-05] MEDS ORDERED: Midazolam HCl 2 mg/2 ml Vial ONE (07:14)
[2019-06-05] MEDS ORDERED: Fentanyl 250 MCG/5 ML VIAL ONE (07:14)
[2019-06-05] MEDS ORDERED: Sodium Chloride 0.9% 10 ML ONE ×2 (07:27)
[2019-06-05] MEDS ORDERED: Glycopyrrolate 0.2 MG/ML 5 ML SYRINGE ONE (07:34)
[2019-06-05] MEDS ORDERED: PHENYLEPHRINE-NS 100 MCG/ML 10 ML SYRINGE ONE (07:34)
[2019-06-05] MEDS ORDERED: ePHEDrine 50 MG/ML VIAL ONE (07:34)
[2019-06-05] MEDS ORDERED: Metoprolol Tartrate 5 MG/5 ML VIAL ONE (07:34)
[2019-06-05] MEDS ORDERED: Ondansetron PF 4 MG/2 ML Vial ONE (07:34)
[2019-06-05] MEDS ORDERED: Vecuronium 10 MG VIAL ONE (07:34)
[2019-06-05] MEDS ORDERED: PROPOFOL 200 MG/20 ML VIAL ONE (07:34)
[2019-06-05] MEDS ORDERED: Lidocaine 1% PF 5 ML VIAL ONE (07:34)
[2019-06-05] MEDS ORDERED: Rocuronium Bromide 10 MG/ML (10ML VIAL) ONE (07:34)
[2019-06-05] MEDS ORDERED: Thrombin 5000 UNITS/5 ML VIAL ONE (07:38)
[2019-06-05] MEDS ORDERED: Sodium Chloride For Inhalation 0.9% 3 ML NEB ONE (07:44)
[2019-06-05] MEDS ORDERED: Fentanyl 100 MCG/2 ML VIAL ONE (14:05)
[2019-06-05] MEDS ORDERED: Labetalol HCl 100 MG/20 ML VIAL ONE (14:15)
[2019-06-05] MEDS ORDERED: Ondansetron HCl/PF 4 MG/2 ML Vial IVP PRN (14:18)
[2019-06-05] MEDS ORDERED: HYDROmorphone 2 MG/ML VIAL SLOW IVP PRN (14:18)
[2019-06-05] MEDS ORDERED: Promethazine HCl 25 MG/ML VIAL SLOW IVP PRN (14:18)
[2019-06-05] MEDS ORDERED: Promethazine HCl 25 MG/ML VIAL IM PRN (14:18)
[2019-06-05] MEDS ORDERED: Labetalol HCl 100 MG/20 ML VIAL SLOW IVP SCH (14:30)
--- NOTE | 2019-06-05 14:33 | CON ---
DATE OF CONSULTATION: REASON FOR CONSULTATION: Hydronephrosis and proteinuria. HISTORY OF PRESENT ILLNESS: This is a 69-year-old female being seen for acute kidney injury and complicated UTI with hydronephrosis. The patient denies any nausea, vomiting, or chest pain. The patient was admitted for spinal stenosis and urgent surgery is planned. PAST MEDICAL HISTORY: The patient has a past medical history of cardiomyopathy, history of hypothyroidism, history of schizophrenia, history of depression, coronary artery disease, history of hysterectomy. SOCIAL HISTORY: No alcohol or drug use. FAMILY HISTORY: Negative for ESRD. ALLERGIES: REVIEWED. HOME MEDICATIONS: List reviewed. HOSPITAL MEDICATIONS: List reviewed. REVIEW OF SYSTEMS: Fifteen-point review of systems was performed and negative, except for positives noted above. GENERAL: HEAD: NECK: No swelling or lumps. NOSE: No epistaxis or discharge. EYES: No diplopia or pain. RESPIRATORY: CARDIOVASCULAR: GASTROINTESTINAL: /MATHEMATICIAN: MUSCULOSKELETAL: No joint pain. NEUROPSYCHIATRIC SYSTEMS: No suicidal ideation. No ideation. SKIN: Denies any rash or ulcer. CONSTITUTIONAL: No fever or chills. PHYSICAL EXAMINATION: See above. The patient is awake and alert, in no acute distress. VITAL SIGNS: Afebrile, pulse 75, breathing 16, blood pressure 112/73. GENERAL APPEARANCE AND MENTAL STATUS: Fair. HEAD/NECK: Normocephalic. Atraumatic. EYES: EOMI. No deformity. EARS: Clear. No ulcers. NOSE: Intact. No lesions. MOUTH: Clear. No discharge. THROAT: Clear. No exudate. LUNGS: Clear. No crackles. CARDIAC: S1, S2. No rub. ABDOMEN: Benign. Bowel sounds positive. GENITALIA/RECTUM: Wise absent. BACK/EXTREMITIES: Edema 0+. NEUROLOGICAL: Alert and motor intact. SKIN: LYMPHATICS: LABORATORY DATA: Hemoglobin 12.3. Creatinine is 0.5. Urine shows protein. Albumin is low. ASSESSMENT AND RECOMMENDATION: 1. Chronic kidney disease stage 1 with proteinuria. I will order an SPEP and check vitamin D levels. 2. Proteinuria. More than 1.5+. Could be due to urinary tract infection. We will re-evaluate labs in the morning. No indication for any further intervention at this time. 3. Hydronephrosis. We will order a renal ultrasound in the morning to evaluate . Job ID: [id number]
[2019-06-05] MEDS ORDERED: Aspirin 81 mg Enteric Coated Tablet PO SCH (15:00)
[2019-06-05 15:19] LABS: Hemoglobin 12.6 g/dL (12.0-16.0)
[2019-06-05] MEDS: Sodium Chloride 0.9% 1,000 ML IV SCH (15:44)
[2019-06-05] MEDS: Acetaminophen 1,000 MG in Premix Bag 1 BAG IVPB SCH ×2 (16:08→21:03)
--- NOTE | 2019-06-05 16:54 | CON ---
DATE OF CONSULTATION: 06/05/2019 PRIMARY KITCHEN AIDE: Gabriela Richard MD REASON FOR CONSULTATION: Cardiomyopathy. HISTORY OF PRESENT ILLNESS: Ms. Palacios is a very pleasant 69-year-old white female who comes to the hospital for lower extremity weakness. She has been slowly becoming more weak on the lower extremities, almost quadriplegic now, and was diagnosed with severe cervical canal stenosis. During her initial evaluation, it was noticed that she had lower extremity edema and an ultrasound of the veins was done and showed she had extensive deep venous thrombosis. She has a contraindication to anticoagulation given her cervical spine issue, so an IVC filter was placed. She underwent cervical stenosis release this morning by Dr. Eaton, everything went well. Echocardiogram done yesterday showed an EF of 15% percent, so Cardiology is being consulted for this. She does have a history of nonischemic cardiomyopathy. Back in 2011, her EF was about 20% to 25%. She underwent heart catheterization that showed normal coronary arteries. This was all by Dr. Richard. She was followed by Dr. Richard until about 2013 at which point, she had normalized ejection fraction and she was considering undergoing bariatric surgery. Dr. Richard recommended that she would lose weight on her own, which she did. She did lose some amount of weight. She has not followed up ever since. She has not had a repeat echo ever since either. Currently, on my evaluation, she is mildly somnolent, but she denies any chest pain, tightness, or pressure. No shortness of breath. PAST MEDICAL HISTORY: 1. Nonischemic cardiomyopathy as above. 2. GERD. 3. Anxiety and depression. 4. Normal heart catheterization back in 2011. 5. Hypothyroidism. 6. Schizophrenia. PAST SURGICAL HISTORY: Hysterectomy. ALLERGIES: NO KNOWN DRUG ALLERGIES. SOCIAL HISTORY: She is , with two kids. No alcohol, tobacco, or drugs. She is a chemical and physical code only, but no intubation. FAMILY HISTORY: Noncontributory. OUTPATIENT MEDICATIONS: 1. Ibuprofen. 2. Advair Diskus. 3. Tylenol p.r.n. 4. Tramadol. 5. Ambien. 6. Sucralfate. 7. Seroquel. 8. Pantoprazole. 9. Lorazepam p.r.n. ALLERGIES: 1. CODEINE GIVES HER RASH AND ITCHING. 2. PINEAPPLE. REVIEW OF SYSTEMS: Difficult to obtain as the patient remains somewhat somnolent after her surgery. PHYSICAL EXAMINATION: VITAL SIGNS: Temperature 98.6, pulse 105, respiratory rate 17, saturating 98% on 2 L nasal cannula, and blood pressure 111/66. GENERAL: She is awake, somewhat somnolent, in no distress. HEENT: Normocephalic and atraumatic. NECK: With a C-collar at the time. LUNGS: Clear to auscultation. CARDIOVASCULAR: S1 and S2. No S3 or S4. There is a grade 2/6 systolic murmur at the right upper sternal border. ABDOMEN: Soft. Positive bowel sounds. EXTREMITIES: Trace edema. SKIN: Warm and dry. LABORATORY DATA: Laboratory work was reviewed. White count of 7.5, hemoglobin 12, hematocrit 36, and platelet count of 230. Coags were reviewed. Chemistries were reviewed. GFR was greater than 90. UA was turbid with greater than 50 red cells and white cells, 3+ bacteria, 3+ blood. Echocardiogram was reviewed. EF of 15% to 20% with dilated left atrium, severe MR, and mild to moderate TR. ASSESSMENT: 1. Dilated cardiomyopathy. 2. Normal heart catheterization in 2011. 3. Nonischemic cardiomyopathy back in 2011, normalized ejection fraction since then. Last echo was in 2013. 4. Cervical stenosis. 5. Deep venous thrombosis. 6. Status post inferior vena cava filter placement. PLAN: 1. More than likely, this is a nonischemic cardiomyopathy and is just a recurrence of her previous cardiomyopathy. At this time, we would recommend she may proceed with her surgery with the understood risk. She most likely has again nonischemic cardiomyopathy; however, at this point, it would be prohibitive to do a heart catheterization as this would require heparin and possibly stenting with antiplatelets, which she has a contraindication for. 2. At this point, her blood pressure is borderline low to start on any heart failure medications. 3. We will continue to monitor her vital signs and once she is more awake and her blood pressure has stabilized, we will decide on how much of heart failure medications she can be started on. Thank you for letting me to participate in the care of your patient. Dr. Richard, her primary digital strategy specialist will follow up in the morning. Job ID: [id number]
[2019-06-05] MEDS: CEFAZOLIN 2 GM in Premix Bag 1 BAG IVPB SCH (17:26)
--- NOTE | 2019-06-05 18:52 | PDOC.HOSPP ---
- Subjective Encounter Date: 06/05/19 Subjective: she is post op and seems to be doing quite well. - Objective Vital Signs & Weight: Vital Signs (12 hours) Temp Pulse Ox 06/05/19 14:40 98.6 F 99 Weight Weight 157 lb 3.033 oz Most Recent Monitor Data Heart Rate from ECG 91 NIBP 93/58 NIBP BP-Mean 69 Respiration from ECG 25 SpO2 92 I&O: 06/04/19 06/05/19 06/06/19 06:59 06:59 06:59 Intake Total 1650 1100 470 Output Total 500 1250 Balance 1150 -150 470 Result Diagrams: 06/05/19 15:10 06/05/19 02:05 Hospitalist ROS - Medication Medications: Active Medications Generic Name Dose Route Start Last Admin Trade Name Freq PRN Reason Stop Dose Admin Hydrocodone Bitart/Acetaminophen 2 tab 06/03/19 13:59 06/03/19 20:47 [place] 5/325 PO 2 tab Q4H PRN Administration Moderate Pain (4-6) Ceftriaxone Sodium 1 gm/ 100 mls @ 200 mls/hr 06/03/19 06:00 06/05/19 06:07 Sodium Chloride IVPB 100 mls 0600 ANDREA Administration Cefazolin Sodium/Dextrose 2 gm 50 mls @ 100 mls/hr 06/05/19 17:00 06/05/19 17 :26 / Device IVPB 50 mls 0100,0900,1700 ANDREA Administration Sodium Chloride 1,000 mls @ 75 mls/hr 06/05/19 15:30 06/05/19 15:44 Normal Saline 0.9% IV 1,000 mls .[id number] ANDREA Administration Acetaminophen 1,000 mg/ Device 100 mls @ 400 mls/hr 06/05/19 16:00 06/05/19 16:08 IVPB 06/06/19 10:14 100 mls 0400,1000,1600,2200 ANDREA Administration Mometasone Furoate/Formoterol Fumar 2 puff 06/03/19 06:30 06/05/19 18:42 Dulera 200 Mcg/5 Mcg Inhaler INH 2 puff BID-RT ANDREA Administration - Exam General Appearance: NAD, awake alert Eye: PERRL, anicteric sclera ENT: normocephalic atraumatic, no oropharyngeal lesions, moist mucosa Heart: RRR, no murmur, no gallops, no rubs, normal peripheral pulses Respiratory: CTAB, no wheezes, no rales, no ronchi, normal chest expansion, no tachypnea, normal percussion Gastrointestinal: soft, non-tender, non-distended, normal bowel sounds, no palpable masses, no hepatomegaly, no splenomegaly, no bruit Extremities: no cyanosis, no clubbing, no edema Hosp A/P (1) DVT (deep venous thrombosis) Code(s): I82.409 - ACUTE EMBOLISM AND THOMBOS UNSP DEEP VN UNSP LOWER EXTREMITY Status: Acute (2) Hydronephrosis Code(s): N13.30 - UNSPECIFIED HYDRONEPHROSIS Status: Acute (3) UTI (urinary tract infection) Status: Acute (4) Cervical stenosis of spine Code(s): M48.02 - SPINAL STENOSIS, CERVICAL REGION Status: Chronic (5) Back pain Code(s): M54.9 - DORSALGIA, UNSPECIFIED Status: Chronic - Plan psych--she is on psych meds but we are unable to verify them, seems to be doing well off meds. musculoskeletal---post surgery and doing well. DVT--extensive DVT in Left LE, post IVC filter. Renal ---UTI--on Rocephin, Nephro is following, renal ultrasound and urinary studies are being done. mag was replaced, will continue to follow her electrolytes. Cradiac--echocardiogram showed a low EF---cardiology consulted
[2019-06-06] MEDS: CEFAZOLIN 2 GM in Premix Bag 1 BAG IVPB SCH ×3 (02:08→16:37)
[2019-06-06] MEDS: Acetaminophen 1,000 MG in Premix Bag 1 BAG IVPB SCH ×2 (04:43→09:20)
[2019-06-06 05:06] LABS: #Eosinphils 0.1 thou/uL (0.0-0.7); #Lymphocytes 3.8 thou/uL (1.20-3.40); #Neutrophils 6.3 thou/uL (1.40-6.50); %Basophils 0.1 % (0.0-1.0); %Eosinophils 0.7 % (0.0-10.0); %Lymphocytes 33.9 % (21.0-51.0); %Neutrophils 56.3 % (42.0-75.0); Hemoglobin 10.8 g/dL (12.0-16.0); Mean Corpuscular HGB CONC 33.3 g/dL (32.0-36.0); Mean Platelet Volume 7.9 fL (7.4-10.4); Platelet Count 215 thou/uL (130-400); RBC Distribution Width 14.8 % (11.5-14.5); Red Blood Cell (RBC) Count 3.37 mill/uL (4.20-5.40); White Blood Cell (WBC) Count 11.2 thou/uL (4.8-10.8)
[2019-06-06] MEDS: Sodium Chloride 0.9% 1,000 ML IV SCH ×2 (05:18→16:36)
[2019-06-06] MEDS: cefTRIAXone\\ROCEPHIN 1 GM in Sodium Chloride 0.9% 100 ML IVPB SCH (05:18)
[2019-06-06 05:30] LABS: Anion Gap 11 mmol/L (10-20); BUN (Urea Nitrogen) 8 mg/dL (9.8-20.1); Calc. Creatinine Clearance 108 mL/min (70-130); Calcium 7.9 mg/dL (7.8-10.44); Carbon Dioxide 24 mmol/L (23-31); Chloride 101 mmol/L (98-107); Estimated GFR-MDRD Greater than 90; Glucose 96 mg/dL (80-115); Potassium 3.8 mmol/L (3.5-5.1); Sodium 132 mmol/L (136-145)
[2019-06-06] MEDS ORDERED: Aspirin 81 mg Enteric Coated Tablet PO SCH ×2 (09:00)
[2019-06-06] MEDS: Mometasone/Formoterol 120 PUFF INHALER INH SCH ×2 (09:17→18:36)
--- NOTE | 2019-06-06 11:58 | OP ---
DATE OF PROCEDURE: LOCATION: OR 12. 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 PROCEDURES PERFORMED: 1. Anterior C3-C4, C4-C5, C5-C6 C6-7 discectomies and placement of interbody spacer C3-C4, C4-C5, C5-C6, C6-C7 for arthrodesis. 2. Anterior cervical plate and screw fixation, C3, C4, C5, C6, and C7. 3. Arthrodesis with allograft, C3, C4, C5, C6, and C7. 4. Use of operative microscope for microdissection. 5. Bottom of C2 to top of C7 laminectomies, partial facetectomies, and foraminotomies. 6. Posterior screw-yousuf fixation of C3, C4, C5, C6, C7 bilaterally. 7. Arthrodesis of C3, C4, C5, C6, C7 posterolaterally for fusion. 8. Use of local bone autograft and allograft for posterolateral fusion. DESCRIPTION OF PROCEDURE: After an informed consent was obtained from the patient and family, the patient was brought to the OR. Proper patient, pause, and identification were carried out. She was placed under excellent general endotracheal anesthesia and an oblique rose was made over right anterior neck. This region was sterilely cleansed, prepared, and draped. Proper patient, pause, and identification were carried out. The wound was then opened with combination of sharp, monopolar, and blunt dissection and proceeded medial to the right carotid sheath and lateral to the tracheoesophageal bundle. We identified the prevertebral layer of deep cervical fascia at C3, C4, C5, C6, and C7 and retraction recurred. We then did distraction following localization at C3-C4 and the microscope was brought in for microdissection. A diskectomy was performed at C3-C4 with the endplates prepared, interbody spacer placed, packed with graft at C3-C4. Then turned our attention to C4-C5, C5-C6, and C6-C7 discectomies and all of those levels with received placement of interbody spacers and graft for arthrodesis. The microscope was removed. The anterior cervical plate and screw fixation at C3, C4, C5, C6, and C7 then occurred and the wound was closed in anatomic layers over drain following hemostasis. We then flipped the patient over following the placement of Lomax Mina to the skull, posterior neck wound was identified and a linear rose drawn out. This area was sterilely cleansed, prepared, and draped. Proper patient, pause, and identification were carried out. The wound was then opened from the C3 to_ C7. Localization film confirmed our area of interest. We then performed following exposure C3-C7 laminectomies, partial facetectomies, and foraminotomies with excellent decompression of spinal cord nerve roots from C3, C4, C5, C6, and C7. Hemostasis was maximized throughout. Decortication of the posterolateral regions then occurred. Placement of local bone autograft obtained with same incision and allograft was placed bilaterally over posterolateral regions. The wound was closed in anatomic layers following sprinkling of vancomycin powder. The patient was then emerged from anesthesia. Job ID: [id number] [facility]
[2019-06-06] MEDS: HYDROcodone/Acetaminophen 5/325 mg Tablet PO PRN (12:12)
--- NOTE | 2019-06-06 14:55 | PRG ---
DATE OF SERVICE: 06/06/2019 Ms. Palacios is postoperative day #1, having undergone anterior and posterior cervical fusion for significant cervical spondylosis with myelopathy. The patient does not have much in the way of pain complaints right now. Nursing staff had difficulty overnight keeping compressed suction on her LUCRECIA drain, and I interrogated the drain quite a bit last night. It appears as though the drain is working, there just may not be enough negative pressure around the exit site, and therefore light dressing around the tubing helps to provide the negative pressure needed to keep the suction. The patient is tolerating liquids. She is moving her arms and legs at this time. She has significant overall weakness, but is antigravity in all the extremities. She even is able to wiggle the toes and give very weak dorsiflexion and plantar flexion bilaterally. She remains with a Wise catheter. She has multiple medical issues, but from neurosurgical standpoint, she is doing well. I would like to continue a full liquid diet, not advance this. We will continue with her drain and antibiotics. The patient has low EF and Cardiology has been consulted and the patient will likely need to be on aspirin; however, we would like to hold until the patient's drain has been removed. She will definitely need inpatient rehab. Please call with any changes in patient's neurologic status, otherwise Neurosurgery will continue to follow. She needs to wear a collar at all times. Job ID: [id number]
[2019-06-06 16:08] LABS: Albumin-Ur 34.4 % (.); Alpha 1 - Ur 2.4 % (.); Alpha 2 - Ur 9.8 % (.); Beta-Ur 27.3 % (.); Gamma-Ur 26.2 % (.); M-Spike,% 12.3 % (Not Observed); Protein, Urine 96.1 mg/dL (Not Estab.)
--- NOTE | 2019-06-06 17:09 | PDOC.HOSPP ---
- Subjective Encounter Date: 06/06/19 Subjective: concerned about her sleep and continues to have pain, also wants her diet to be upgraded - Objective Vital Signs & Weight: Vital Signs (12 hours) Temp Pulse Resp BP Pulse Ox 06/06/19 16:05 97.9 F 69 16 111/72 97 06/06/19 10:25 98.5 F 112 H 16 120/76 95 06/06/19 08:00 98.3 F Weight Weight 154 lb 8.705 oz Most Recent Monitor Data Heart Rate from ECG 108 NIBP 118/66 NIBP BP-Mean 83 Respiration from ECG 17 SpO2 96 I&O: 06/05/19 06/06/19 06/07/19 06:59 06:59 06:59 Intake Total 1100 1787 Output Total 1250 290 45 Balance -150 1497 -45 Result Diagrams: 06/06/19 04:37 06/06/19 04:37 Hospitalist ROS - Medication Medications: Active Medications Generic Name Dose Route Start Last Admin Trade Name Freq PRN Reason Stop Dose Admin Hydrocodone Bitart/Acetaminophen 2 tab 06/06/19 14:00 06/06/19 12:12 [place] 5/325 PO 2 tab Q4H PRN Administration Moderate Pain (4-6) Cefazolin Sodium/Dextrose 2 gm 50 mls @ 100 mls/hr 06/05/19 17:00 06/06/19 16 :37 / Device IVPB 50 mls 0100,0900,1700 ANDREA Administration Sodium Chloride 1,000 mls @ 75 mls/hr 06/05/19 15:30 06/06/19 16:36 Normal Saline 0.9% IV 1,000 mls .[id number] ANDREA Administration Mometasone Furoate/Formoterol Fumar 2 puff 06/03/19 06:30 06/06/19 09:17 Dulera 200 Mcg/5 Mcg Inhaler INH 2 puff BID-RT ANDREA Administration - Exam General Appearance: NAD, awake alert Eye: PERRL, anicteric sclera ENT: normocephalic atraumatic, no oropharyngeal lesions, moist mucosa Neck: supple, symmetric, no JVD, no thyromegaly, no lymphadenopathy, no carotid bruit Heart: RRR, no murmur, no gallops, no rubs, normal peripheral pulses Respiratory: CTAB, no wheezes, no rales, no ronchi, normal chest expansion, no tachypnea, normal percussion Gastrointestinal: soft, non-tender, non-distended, normal bowel sounds, no palpable masses, no hepatomegaly, no splenomegaly, no bruit Extremities: no cyanosis, no clubbing, no edema, 1+ LE edema Hosp A/P (1) DVT (deep venous thrombosis) Code(s): I82.409 - ACUTE EMBOLISM AND THOMBOS UNSP DEEP VN UNSP LOWER EXTREMITY Status: Acute (2) Hydronephrosis Code(s): N13.30 - UNSPECIFIED HYDRONEPHROSIS Status: Acute (3) UTI (urinary tract infection) Status: Acute (4) Cervical stenosis of spine Code(s): M48.02 - SPINAL STENOSIS, CERVICAL REGION Status: Chronic (5) Back pain Code(s): M54.9 - DORSALGIA, UNSPECIFIED Status: Chronic - Plan psych--she is on psych meds but we are unable to verify them, seems to be doing well off meds, family member will help us get her meds---for sleep I will start her on seroquel as she was on that in the past. musculoskeletal---post surgery and doing well. DVT--extensive DVT in Left LE, post IVC filter. Renal ---UTI--on keflex. mag was replaced, will continue to follow her electrolytes. Cradiac--echocardiogram showed a low EF---cardiology consulted and following. there is drop in hgb, but no signs of overt bleed, or hemodynamic instability-- -this could be jr-operative---will recheck in am
[2019-06-06] MEDS ORDERED: diphenhydrAMINE 25 MG CAP PO PRN (17:11)
--- NOTE | 2019-06-06 18:11 | PDOC.CPN ---
- Subjective Date: 06/06/19 Time: 18:08 - Review of Systems General: denies: fever/chills, weight/appetite/sleep changes, night sweats, fatigue Respiratory: denies: cough, congestion, shortness of breath, exercise intolerance Cardiovascular: denies: chest pain, palpitation, edema, paroxysmal nocturnal dyspnea, orthopnea Gastrointestinal: denies: nausea, vomiting, diarrhea, constipation, abd pain, GI bleeding Musculoskeletal: reports: pain Neurological: reports: numbness, weakness. denies: syncope, seizure - Objective Allergies/Adverse Reactions: Allergies Allergy/AdvReac Type Severity Reaction Status Date / Time codeine Allergy Severe AMS, rash, Verified 06/03/19 03:47 itching pineapple Allergy Verified 06/03/19 03:47 Visit Medications: Current Medications Acetaminophen (Tylenol) 650 mg PO Q4H PRN PRN Reason: Headache/Fever/Mild Pain (1-3) Hydrocodone Bitart/Acetaminophen ([place] 5/325) 2 tab PO Q4H PRN PRN Reason: Moderate Pain (4-6) Last Admin: 06/06/19 12:12 Dose: 2 tab Diphenhydramine HCl (Benadryl) 25 mg PO HSPRN PRN PRN Reason: Insomnia Hydralazine HCl (Apresoline) 10 mg SLOW IVP Q4H PRN PRN Reason: SBP > 180 and HR < 70 Cefazolin Sodium/Dextrose 2 gm (/ Device) 50 mls @ 100 mls/hr IVPB 0100,0900, 1700 [facility] Last Admin: 06/06/19 16:37 Dose: 50 mls Sodium Chloride (Normal Saline 0.9%) 1,000 mls @ 75 mls/hr IV .[id number] [facility] Last Admin: 06/06/19 16:36 Dose: 1,000 mls Labetalol HCl (Normodyne) 10 mg SLOW IVP Q10MIN [facility] Stop: 06/09/19 14:31 Mometasone Furoate/Formoterol Fumar (Dulera 200 Mcg/5 Mcg Inhaler) 2 puff INH BID-RT [facility] Last Admin: 06/06/19 09:17 Dose: 2 puff Ondansetron HCl (Zofran Odt) 4 mg PO Q6H PRN PRN Reason: Nausea/Vomiting Ondansetron HCl (Zofran) 4 mg IVP Q6H PRN PRN Reason: Nausea/Vomiting Quetiapine Fumarate (Seroquel) 25 mg PO HS ANDREA Vital Signs & Weight: Vital Signs Temp Pulse Resp BP Pulse Ox 06/06/19 16:05 97.9 F 69 16 111/72 97 06/06/19 10:25 98.5 F 112 H 16 120/76 95 06/06/19 08:00 98.3 F Weight 154 lb 8.705 oz - Quality Measures Condition: Heart Failure CV meds: Beta Robbin: No (BP low), ISAIAH/ARB: No (BP low) - Medication Contraindications No Beta Robbin reason: Beta robbin not tolerated No ISAIAH/ARB reason: ACEI/ARB not tolerated No Antithrombotic reason: Medical contraindication No Anticoagulant reason: Medical contraindication - Physical Exam General: no apparent distress HEENT: mucus membranes moist Neck: other (C Collar in place.) Cardiac: regular rate and rhythm Lungs: clear to auscultation Neuro: weakness Abdomen: active bowel sounds, soft, non-tender Skin: clear Musculoskeletal: no pain - Labs Result Diagrams: 06/06/19 04:37 06/06/19 04:37 Troponin/CKMB Troponin I 0.017 ng/mL (< 0.028) 06/02/19 22:47 - Assessment/Plan Assessment/Plan: 1. Dilated CM, likely non ischemic. EF 10-15%. 2. Cervical stenosis, s/p surgical release. 3. Acute DVT 4. Schizophrenia PLAN: - No ASA or anticoagulation until safe from surgical perspective. - IVC filter in place - BP currently borderline low to start any BB or ACEI. - Will follow.
[2019-06-07] MEDS: Sodium Chloride 0.9% 1,000 ML IV SCH (01:21)
[2019-06-07] MEDS: CEFAZOLIN 2 GM in Premix Bag 1 BAG IVPB SCH ×3 (01:21→17:16)
[2019-06-07 06:01] LABS: #Basophils 0.1 thou/uL (0.0-0.2); #Eosinphils 0.1 thou/uL (0.0-0.7); #Lymphocytes 3.8 thou/uL (1.20-3.40); #Monocytes 0.8 thou/uL (0.11-0.59); #Neutrophils 5.3 thou/uL (1.40-6.50); %Basophils 1.1 % (0.0-1.0); %Eosinophils 1.2 % (0.0-10.0); %Lymphocytes 37.8 % (21.0-51.0); %Monocytes 7.4 % (0.0-10.0); %Neutrophils 52.6 % (42.0-75.0); Hemoglobin 10.6 g/dL (12.0-16.0); Mean Corpuscular HGB CONC 31.9 g/dL (32.0-36.0); Mean Corpuscular Hemoglobin 30.7 pg (27.0-31.0); Mean Platelet Volume 7.8 fL (7.4-10.4); Platelet Count 196 thou/uL (130-400); Red Blood Cell (RBC) Count 3.46 mill/uL (4.20-5.40); White Blood Cell (WBC) Count 10.1 thou/uL (4.8-10.8)
[2019-06-07 06:23] LABS: Anion Gap 10 mmol/L (10-20); BUN (Urea Nitrogen) 8 mg/dL (9.8-20.1); Calc. Creatinine Clearance 111 mL/min (70-130); Calcium 8.2 mg/dL (7.8-10.44); Carbon Dioxide 23 mmol/L (23-31); Chloride 98 mmol/L (98-107); Estimated GFR-MDRD Greater than 90; Glucose 104 mg/dL (80-115); Magnesium 1.8 mg/dL (1.6-2.6); Potassium 4.1 mmol/L (3.5-5.1); Sodium 127 mmol/L (136-145)
[2019-06-07] MEDS: Mometasone/Formoterol 120 PUFF INHALER INH SCH ×2 (07:58→18:42)
--- NOTE | 2019-06-07 10:10 | PRG ---
DATE OF SERVICE: 06/07/2019 Ms. Palacios continues to recover from her anterior-posterior decompression for significant myelopathy. She moves both lower extremities, which is an improvement. She does have some underlying psych issues, which is quite obvious from a blunted affect and at times atypical questions, but nevertheless she follows commands. Her drain output has been scant and is not holding suction, we will remove it tomorrow. Job ID: [id number]
--- NOTE | 2019-06-07 17:03 | PDOC.CPN ---
- Subjective Date: 06/07/19 Time: 17:00 - Review of Systems Respiratory: denies: cough, congestion, shortness of breath, exercise intolerance Cardiovascular: denies: chest pain, palpitation, edema, paroxysmal nocturnal dyspnea, orthopnea Gastrointestinal: denies: nausea, vomiting, diarrhea, constipation, abd pain, GI bleeding Musculoskeletal: reports: pain Neurological: reports: weakness - Objective Allergies/Adverse Reactions: Allergies Allergy/AdvReac Type Severity Reaction Status Date / Time codeine Allergy Severe AMS, rash, Verified 06/03/19 03:47 itching pineapple Allergy Verified 06/03/19 03:47 Visit Medications: Current Medications Acetaminophen (Tylenol) 650 mg PO Q4H PRN PRN Reason: Headache/Fever/Mild Pain (1-3) Hydrocodone Bitart/Acetaminophen ([place] 5/325) 2 tab PO Q4H PRN PRN Reason: Moderate Pain (4-6) Last Admin: 06/06/19 12:12 Dose: 2 tab Diphenhydramine HCl (Benadryl) 25 mg PO HSPRN PRN PRN Reason: Insomnia Hydralazine HCl (Apresoline) 10 mg SLOW IVP Q4H PRN PRN Reason: SBP > 180 and HR < 70 Cefazolin Sodium/Dextrose 2 gm (/ Device) 50 mls @ 100 mls/hr IVPB 0100,0900, 1700 [facility] Last Admin: 06/07/19 08:21 Dose: 50 mls Sodium Chloride (Normal Saline 0.9%) 1,000 mls @ 75 mls/hr IV .[id number] [facility] Last Admin: 06/07/19 01:21 Dose: 1,000 mls Labetalol HCl (Normodyne) 10 mg SLOW IVP Q10MIN [facility] Stop: 06/09/19 14:31 Lisinopril (Zestril) 1.25 mg PO DAILY [facility] Mometasone Furoate/Formoterol Fumar (Dulera 200 Mcg/5 Mcg Inhaler) 2 puff INH BID-RT [facility] Last Admin: 06/07/19 07:58 Dose: 2 puff Ondansetron HCl (Zofran Odt) 4 mg PO Q6H PRN PRN Reason: Nausea/Vomiting Ondansetron HCl (Zofran) 4 mg IVP Q6H PRN PRN Reason: Nausea/Vomiting Quetiapine Fumarate (Seroquel) 25 mg PO HS [facility] Last Admin: 06/06/19 20:37 Dose: 25 mg Vital Signs & Weight: Vital Signs Temp Pulse Resp BP Pulse Ox 06/07/19 15:48 98.4 F 99 16 104/72 98 06/07/19 11:16 98.3 F 89 16 107/67 100 06/07/19 08:00 98 06/07/19 07:32 98.1 F 100 16 95/54 L 98 Weight 159 lb 2 oz - Quality Measures Condition: Heart Failure CV meds: Beta Robbin: No (BP low), ISAIAH/ARB: Yes, ASA: No, Plavix/Effient/ Brilinta: No - Medication Contraindications No Beta Robbin reason: Beta robbin not tolerated No Antithrombotic reason: Medical contraindication No Anticoagulant reason: Medical contraindication - Physical Exam General: alert & oriented x3, no apparent distress HEENT: mucus membranes moist Neck: other (C-collar.) Cardiac: regular rate and rhythm, no murmur, regular rate, regular rhythm Lungs: clear to auscultation Neuro: coordination normal, weakness Abdomen: active bowel sounds, soft, non-tender Skin: clear Musculoskeletal: no pain - Labs Result Diagrams: 06/07/19 05:32 06/07/19 05:32 Troponin/CKMB Troponin I 0.017 ng/mL (< 0.028) 06/02/19 22:47 - Assessment/Plan Assessment/Plan: 1. Dilated CM, likely non ischemic. EF 10-15%. 2. Cervical stenosis, s/p surgical release. 3. Acute DVT 4. Schizophrenia PLAN: - No ASA or anticoagulation until safe from surgical perspective. - IVC filter in place - Will start very low dose ACEI tomorrow. - We spoke about AICD and lifevest and she is agreeable. - Will place an order for lifevest. - From cardiac perspective may discharge to rehab once lifevest in place. - Will up titrate BB and ACEI as an outpatient. - She has a relative contraindication to AICD in her schizophrenia, hopefully her LV function will improve.
--- NOTE | 2019-06-07 19:33 | PDOC.HOSPP ---
- Subjective Encounter Date: 06/07/19 Subjective: still complains of insomnia and is drinking a lot of water. - Objective Vital Signs & Weight: Vital Signs (12 hours) Temp Pulse Resp BP Pulse Ox 06/07/19 19:25 98.8 F 98 16 111/76 98 06/07/19 15:48 98.4 F 99 16 104/72 98 06/07/19 11:16 98.3 F 89 16 107/67 100 06/07/19 08:00 98 06/07/19 07:32 98.1 F 100 16 95/54 L 98 Weight Weight 159 lb 2 oz Most Recent Monitor Data Heart Rate from ECG 108 NIBP 118/66 NIBP BP-Mean 83 Respiration from ECG 17 SpO2 96 I&O: 06/06/19 06/07/19 06/08/19 06:59 06:59 06:59 Intake Total 1787 2980 2050 Output Total 444 313 6558 Balance 1497 2130 645 Result Diagrams: 06/07/19 05:32 06/07/19 05:32 Hospitalist ROS - Medication Medications: Active Medications Generic Name Dose Route Start Last Admin Trade Name Freq PRN Reason Stop Dose Admin Hydrocodone Bitart/Acetaminophen 2 tab 06/06/19 14:00 06/06/19 12:12 [place] 5/325 PO 2 tab Q4H PRN Administration Moderate Pain (4-6) Cefazolin Sodium/Dextrose 2 gm 50 mls @ 100 mls/hr 06/05/19 17:00 06/07/19 17 :16 / Device IVPB 50 mls 0100,0900,1700 ANDREA Administration Mometasone Furoate/Formoterol Fumar 2 puff 06/03/19 06:30 06/07/19 18:42 Dulera 200 Mcg/5 Mcg Inhaler INH 2 puff BID-RT ANDREA Administration Quetiapine Fumarate 25 mg 06/06/19 21:00 06/06/19 20:37 Seroquel PO 25 mg HS ANDREA Administration - Exam General Appearance: NAD, awake alert Eye: PERRL, anicteric sclera ENT: normocephalic atraumatic, no oropharyngeal lesions, moist mucosa Neck: supple, symmetric, no JVD, no thyromegaly, no lymphadenopathy, no carotid bruit Heart: RRR, no murmur, no gallops, no rubs, normal peripheral pulses Respiratory: CTAB, no wheezes, no rales, no ronchi, normal chest expansion, no tachypnea, normal percussion Gastrointestinal: soft, non-tender, non-distended, normal bowel sounds, no palpable masses, no hepatomegaly, no splenomegaly, no bruit Extremities: no cyanosis, no clubbing, no edema Neurological: CN's grossly intact, normal sensation to touch, no weakness, no focal deficits, no new deficit Hosp A/P (1) DVT (deep venous thrombosis) Code(s): I82.409 - ACUTE EMBOLISM AND THOMBOS UNSP DEEP VN UNSP LOWER EXTREMITY Status: Acute (2) Hydronephrosis Code(s): N13.30 - UNSPECIFIED HYDRONEPHROSIS Status: Acute (3) UTI (urinary tract infection) Status: Acute (4) Cervical stenosis of spine Code(s): M48.02 - SPINAL STENOSIS, CERVICAL REGION Status: Chronic (5) Back pain Code(s): M54.9 - DORSALGIA, UNSPECIFIED Status: Chronic - Plan psych--she is on psych meds but we are unable to verify them, seems to be doing well off meds, family member will help us get her meds---for sleep I will start her on seroquel and I will add Ativan since it worked for her in the past. musculoskeletal---post surgery and doing well still on full liquid as per protocol. DVT--extensive DVT in Left LE, post IVC filter. Renal ---UTI--on keflex. mag was replaced, she is drinking a lot of water and her Na is dropping, I will fluid restrict her to 1 liter and a half per 24 h Cradiac--echocardiogram showed a low EF---life vest ordered and delivered.
[2019-06-07] MEDS: Acetaminophen 325 MG TAB PO PRN (21:02)
[2019-06-07] MEDS: Lorazepam 1 MG TAB PO PRN (21:32)
[2019-06-08 05:28] LABS: #Eosinphils 0.2 thou/uL (0.0-0.7); #Lymphocytes 3.3 thou/uL (1.20-3.40); #Monocytes 0.7 thou/uL (0.11-0.59); #Neutrophils 4.3 thou/uL (1.40-6.50); %Basophils 0.4 % (0.0-1.0); %Eosinophils 2.2 % (0.0-10.0); %Monocytes 8.1 % (0.0-10.0); %Neutrophils 50.3 % (42.0-75.0); Hemoglobin 10.1 g/dL (12.0-16.0); Mean Corpuscular HGB CONC 33.5 g/dL (32.0-36.0); Mean Corpuscular Hemoglobin 32.1 pg (27.0-31.0); Mean Corpuscular Volume 95.6 fL (78.0-98.0); Mean Platelet Volume 7.7 fL (7.4-10.4); Platelet Count 168 thou/uL (130-400); RBC Distribution Width 14.9 % (11.5-14.5); Red Blood Cell (RBC) Count 3.15 mill/uL (4.20-5.40); White Blood Cell (WBC) Count 8.5 thou/uL (4.8-10.8)
[2019-06-08 05:52] LABS: Anion Gap 13 mmol/L (10-20); BUN (Urea Nitrogen) 6 mg/dL (9.8-20.1); Calc. Creatinine Clearance 115 mL/min (70-130); Calcium 8.2 mg/dL (7.8-10.44); Carbon Dioxide 23 mmol/L (23-31); Chloride 101 mmol/L (98-107); Estimated GFR-MDRD Greater than 90; Glucose 82 mg/dL (80-115); Magnesium 1.7 mg/dL (1.6-2.6); Potassium 3.1 mmol/L (3.5-5.1); Sodium 134 mmol/L (136-145)
[2019-06-08] MEDS: Mometasone/Formoterol 120 PUFF INHALER INH SCH ×2 (07:04→18:31)
[2019-06-08] MEDS: CEFAZOLIN 2 GM in Premix Bag 1 BAG IVPB SCH ×3 (09:13→17:52)
[2019-06-08] MEDS: Lisinopril 2.5 MG TAB PO SCH (09:14)
[2019-06-08] MEDS: Polyethylene Glycol 3350 17 GM Packet PO SCH (09:15)
[2019-06-08] MEDS: Acetaminophen 325 MG TAB PO PRN ×2 (09:15→20:16)
--- NOTE | 2019-06-08 09:54 | PRG ---
DATE OF SERVICE: 06/08/2019 This is Seth Huber PA-C dictating a report for Bruce Eaton MD. This is postoperative recheck. Ms. Palacios is postoperative day #3, having undergone anterior cervical diskectomy and fusion and posterior cervical laminectomies and fusion. The patient states she feels great today. She was able to sleep all night. Drain output has been 5 mL, so I have removed it. She states she has been working on her leg strength while in bed, but also with therapies. She has mild to moderate weakness into the bilateral upper extremities, although she appears to be moving with more vigor today. She also has slight improved strength into the bilateral legs and intact sensation. I have discussed her case with inpatient rehab and hopefully, we can get her to rehab at anytime as she is ready, and I believe that at this point, extensive rehab is going to be the best for her. Please call with any changes in the patient's neurologic status. Job ID: [id number]
[2019-06-08] MEDS: HYDROcodone/Acetaminophen 5/325 mg Tablet PO PRN (13:21)
[2019-06-08] MEDS ORDERED: Milk Of Magnesia 30 ML UDCUP PO PRN (14:52)
--- NOTE | 2019-06-08 14:56 | PDOC.HOSPP ---
- Subjective Encounter Date: 06/08/19 Subjective: slept well yesterday, feels better today, is able to move her arms and legs. - Objective Vital Signs & Weight: Vital Signs (12 hours) Temp Pulse Resp BP BP Pulse Ox 06/08/19 09:14 97 101/70 06/08/19 07:30 97.6 F 97 14 101/70 98 06/08/19 07:04 101 H 20 94 L 06/08/19 03:11 97.6 F 99 18 95/66 97 Weight Weight 156 lb 1 oz Most Recent Monitor Data Heart Rate from ECG 108 NIBP 118/66 NIBP BP-Mean 83 Respiration from ECG 17 SpO2 96 I&O: 06/07/19 06/08/19 06/09/19 06:59 06:59 06:59 Intake Total 2980 2470 Output Total 850 2660 Balance 2130 -190 Result Diagrams: 06/08/19 04:54 06/08/19 04:54 Hospitalist ROS - Medication Medications: Active Medications Generic Name Dose Route Start Last Admin Trade Name Freq PRN Reason Stop Dose Admin Acetaminophen 650 mg 06/06/19 14:00 06/08/19 09:15 Tylenol PO 650 mg Q4H PRN Administration Headache/Fever/Mild Pain (1-3) Hydrocodone Bitart/Acetaminophen 2 tab 06/06/19 14:00 06/08/19 13:21 [place] 5/325 PO 1 tab Q4H PRN Administration Moderate Pain (4-6) Cefazolin Sodium/Dextrose 2 gm 50 mls @ 100 mls/hr 06/05/19 17:00 06/08/19 09 :13 / Device IVPB 50 mls 0100,0900,1700 ANDREA Administration Lisinopril 1.25 mg 06/08/19 09:00 06/08/19 09:14 Zestril PO 1.25 mg DAILY ANDREA Administration Lorazepam 2 mg 06/07/19 19:23 06/07/19 21:32 Ativan PO 2 mg HS PRN Administration Insomnia Mometasone Furoate/Formoterol Fumar 2 puff 06/03/19 06:30 06/08/19 07:04 Dulera 200 Mcg/5 Mcg Inhaler INH 2 puff BID-RT ANDREA Administration Polyethylene Glycol 17 gm 06/08/19 09:00 06/08/19 09:15 Miralax PO 17 gm DAILY ANDREA Administration Quetiapine Fumarate 25 mg 06/06/19 21:00 06/07/19 21:02 Seroquel PO 25 mg HS ANDREA Administration - Exam General Appearance: NAD, awake alert Eye: PERRL, anicteric sclera ENT: normocephalic atraumatic, no oropharyngeal lesions, moist mucosa Neck: supple, symmetric, no JVD, no thyromegaly, no lymphadenopathy, no carotid bruit Heart: RRR, no murmur, no gallops, no rubs, normal peripheral pulses Respiratory: CTAB, no wheezes, no rales, no ronchi, normal chest expansion, no tachypnea, normal percussion Gastrointestinal: soft, non-tender, non-distended, normal bowel sounds, no palpable masses, no hepatomegaly, no splenomegaly, no bruit Extremities: no cyanosis, no clubbing, no edema Skin: normal turgor, no lesions, no rashes Neurological: CN's grossly intact, normal sensation to touch, no weakness, no focal deficits, no new deficit Musculoskeletal: normal tone, normal strength, no muscle wasting Psychiatric: normal affect, normal behavior, A&O x 3 Hosp A/P (1) DVT (deep venous thrombosis) Code(s): I82.409 - ACUTE EMBOLISM AND THOMBOS UNSP DEEP VN UNSP LOWER EXTREMITY Status: Acute (2) Hydronephrosis Code(s): N13.30 - UNSPECIFIED HYDRONEPHROSIS Status: Acute (3) UTI (urinary tract infection) Status: Acute (4) Cervical stenosis of spine Code(s): M48.02 - SPINAL STENOSIS, CERVICAL REGION Status: Chronic (5) Back pain Code(s): M54.9 - DORSALGIA, UNSPECIFIED Status: Chronic - Plan psych--she is on psych meds but we are unable to verify them, seems to be doing well off meds, family member will help us get her meds---for sleep I will start her on seroquel and I will add Ativan --and seems that she had some good sleep yesterday. musculoskeletal---post surgery and doing well still on full liquid as per protocol. DVT--extensive DVT in Left LE, post IVC filter. Renal ---UTI--on keflex. mag was replaced, she is drinking a lot of water and her Na is dropping, seems that restrict her to 1 liter and a half per 24 h Cradiac--echocardiogram showed a low EF---life vest ordered and will be delivered soon.
[2019-06-08] MEDS ORDERED: Potassium Chloride 20 MEQ TAB PO SCH (15:00)
--- NOTE | 2019-06-08 16:43 | PDOC.CPN ---
- Subjective Date: 06/08/19 Time: 16:40 - Review of Systems General: denies: fever/chills, weight/appetite/sleep changes, night sweats, fatigue Respiratory: denies: cough, congestion, shortness of breath, exercise intolerance Cardiovascular: denies: chest pain, palpitation, edema, paroxysmal nocturnal dyspnea, orthopnea Gastrointestinal: denies: nausea, vomiting, diarrhea, constipation, abd pain, GI bleeding Musculoskeletal: denies: pain, tenderness, stiffness, swelling, arthritis/ arthralgias Neurological: reports: numbness - Objective Allergies/Adverse Reactions: Allergies Allergy/AdvReac Type Severity Reaction Status Date / Time codeine Allergy Severe AMS, rash, Verified 06/03/19 03:47 itching pineapple Allergy Verified 06/03/19 03:47 Visit Medications: Current Medications Acetaminophen (Tylenol) 650 mg PO Q4H PRN PRN Reason: Headache/Fever/Mild Pain (1-3) Last Admin: 06/08/19 09:15 Dose: 650 mg Hydrocodone Bitart/Acetaminophen ([place]idge 5/325) 2 tab PO Q4H PRN PRN Reason: Moderate Pain (4-6) Last Admin: 06/08/19 13:21 Dose: 1 tab Diphenhydramine HCl (Benadryl) 25 mg PO HSPRN PRN PRN Reason: Insomnia Hydralazine HCl (Apresoline) 10 mg SLOW IVP Q4H PRN PRN Reason: SBP > 180 and HR < 70 Cefazolin Sodium/Dextrose 2 gm (/ Device) 50 mls @ 100 mls/hr IVPB 0100,0900, 1700 [facility] Last Admin: 06/08/19 09:13 Dose: 50 mls Labetalol HCl (Normodyne) 10 mg SLOW IVP Q10MIN ANDREA Stop: 06/09/19 14:31 Lisinopril (Zestril) 1.25 mg PO DAILY ANDREA Last Admin: 06/08/19 09:14 Dose: 1.25 mg Lorazepam (Ativan) 2 mg PO HS PRN PRN Reason: Insomnia Last Admin: 06/07/19 21:32 Dose: 2 mg Magnesium Hydroxide (Milk Of Magnesium) 30 ml PO DAILYPRN PRN PRN Reason: Constipation Mometasone Furoate/Formoterol Fumar (Dulera 200 Mcg/5 Mcg Inhaler) 2 puff INH BID-RT [facility] Last Admin: 06/08/19 07:04 Dose: 2 puff Ondansetron HCl (Zofran Odt) 4 mg PO Q6H PRN PRN Reason: Nausea/Vomiting Ondansetron HCl (Zofran) 4 mg IVP Q6H PRN PRN Reason: Nausea/Vomiting Polyethylene Glycol (Miralax) 17 gm PO DAILY [facility] Last Admin: 06/08/19 09:15 Dose: 17 gm Potassium Chloride (K-Dur) 40 meq PO NOW [facility] Stop: 06/08/19 17:00 Last Admin: 06/08/19 15:21 Dose: 40 meq Quetiapine Fumarate (Seroquel) 25 mg PO HS [facility] Last Admin: 06/07/19 21:02 Dose: 25 mg Vital Signs & Weight: Vital Signs Temp Pulse Resp BP BP Pulse Ox 06/08/19 15:00 98.1 F 102 H 18 95/61 98 06/08/19 11:00 97.7 F 102 H 18 99/67 98 06/08/19 09:14 97 101/70 06/08/19 07:30 97.6 F 97 14 101/70 98 06/08/19 07:04 101 H 20 94 L Weight 156 lb 1 oz - Quality Measures Condition: Heart Failure CV meds: Beta Robbin: No (BP low), ISAIAH/ARB: Yes, ASA: No, Plavix/Effient/ Brilinta: No - Medication Contraindications No Beta Robbin reason: Beta robbin not tolerated No ISAIAH/ARB reason: ACEI/ARB not tolerated No Antithrombotic reason: Medical contraindication No Anticoagulant reason: Medical contraindication - Physical Exam General: alert & oriented x3, no apparent distress Neck: other (C Collar) Cardiac: regular rate and rhythm, no murmur Lungs: clear to auscultation Neuro: weakness Abdomen: active bowel sounds, soft, non-tender Skin: clear Musculoskeletal: no pain - Labs Result Diagrams: 06/08/19 04:54 06/08/19 04:54 Troponin/CKMB Troponin I 0.017 ng/mL (< 0.028) 06/02/19 22:47 - Assessment/Plan Assessment/Plan: 1. Dilated CM, likely non ischemic. EF 10-15%. 2. Cervical stenosis, s/p surgical release. 3. Acute DVT 4. Schizophrenia PLAN: - No ASA or anticoagulation until safe from surgical perspective. - IVC filter in place - On very low dose ACEI. - From cardiac perspective may discharge to rehab once lifevest in place. - Cannot add BB due to borderline BP. - She has a relative contraindication to AICD in her schizophrenia, hopefully her LV function will improve. - Will sign off. Please call with any questions.
[2019-06-08] MEDS: Lorazepam 1 MG TAB PO PRN (20:16)
[2019-06-09] MEDS: CEFAZOLIN 2 GM in Premix Bag 1 BAG IVPB SCH ×2 (01:56→08:32)
[2019-06-09] MEDS: HYDROcodone/Acetaminophen 5/325 mg Tablet PO PRN ×4 (02:02→18:45)
[2019-06-09 07:05] LABS: Anion Gap 8 mmol/L (10-20); BUN (Urea Nitrogen) 7 mg/dL (9.8-20.1); Calc. Creatinine Clearance 136 mL/min (70-130); Carbon Dioxide 27 mmol/L (23-31); Chloride 103 mmol/L (98-107); Estimated GFR-MDRD Greater than 90; Glucose 83 mg/dL (80-115); Potassium 3.9 mmol/L (3.5-5.1); Sodium 134 mmol/L (136-145)
[2019-06-09] MEDS: Mometasone/Formoterol 120 PUFF INHALER INH SCH ×2 (07:31→19:04)
[2019-06-09 08:29] VITALS: TEMP 98.2
[2019-06-09] MEDS: Lisinopril 2.5 MG TAB PO SCH (08:31)
[2019-06-09] MEDS: Polyethylene Glycol 3350 17 GM Packet PO SCH (08:31)
--- NOTE | 2019-06-09 11:15 | PRG ---
DATE OF SERVICE: 06/09/2019 Ms. Palacios is hospital day #6 and 5 days out from anterior-posterior decompression and fusion for multilevel circumferential spinal cord compression. She is delayed and moving the left leg, but she is able to move it with moderate weakness throughout and mild weakness in the right leg. However, she is able to bend her knee up at the hip and bilaterally moves her toes. This is much improved compared to before surgery. She was completely flaccid in the left leg and moderately weak in the right. She needs inpatient rehab. Her drain has been removed. She is in a cervical collar. Again, we are trying to get her placed to rehab. Of note, she has congestive heart failure at baseline and we are awaiting a LifeVest per Cardiology before she goes to rehab. Job ID: [id number]
[2019-06-09 16:49] VITALS: BP 107/72
--- NOTE | 2019-06-10 04:01 | DIS ---
DATE OF ADMISSION: 06/03/2019 DATE OF DISCHARGE: 06/09/2019 HISTORY OF PRESENT ILLNESS: This is a 69-year-old female patient, who was admitted on 06/03/2019 for ongoing difficulty with ambulation. [facility]. Progressively, her back pain got worse and for the last 40 days, she has been very weak and bed-bound with difficulty with urinary retention as well as fecal incontinence. Her pain got very severe. She went to an emergency room at [facility]. A CT of the abdomen and pelvis showed urinary retention. She was sent to our emergency room. She was evaluated by Neurosurgery. MRI showed multilevel severe stenosis in the cervical spine. She ended up undergoing surgery for suspected myelopathy. She did undergo C3-C7 ACDF followed by C2-C7 laminectomy. Prior to surgery, she did have an echocardiogram that showed a very low EF of around 15%, but since there was more benefit than risk and undergoing the surgery. The patient did have her surgery and did well post surgery. The patient had urinary tract infection and was treated with IV antibiotics. During her stay, she did complain of insomnia but responded well to Ativan. The patient has been progressing favorably. She was seen by Cardiology and due to her low EF, she was prescribed a LifeVest. Also, patient before surgery was found to have extensive left lower extremity DVT and since she was not a candidate for anticoagulation, an IVC filter was placed. She did undergo a renal ultrasound that showed nonobstructing left renal calculus. She was started on very low dose of ISAIAH inhibitor but since she just got surgery, she was not a candidate for anticoagulation still. PHYSICAL EXAMINATION: GENERAL: Over the past of couple days, she has been doing well. VITAL SIGNS: Her blood pressure is 97/66, heart rate of 103, temperature is 98.2. She is saturating 96% on room air. HEENT: Head is nontraumatic, normocephalic. Pupils equal, reactive. Extraocular movements are intact. Nonicteric sclerae. Well injected conjunctivae. Oral mucosa normal. Nasal mucosa normal. NECK: Supple. No adenopathy. No murmur. Thyroid is not palpable. Trachea is midline. No supraclavicular lymphadenopathy. HEART: S1, S2 regular. No murmur. No gallops. No frictional rubs. No displacement of PMI. LUNGS: Clear to auscultation bilaterally. No wheezes. No rhonchi or crackles. ABDOMEN: Bowel sounds are positive. Nontender abdomen. No hepatosplenomegaly. No lower extremity edema. No cyanosis. NEUROLOGIC: Moving all four extremities. LABORATORY DATA: Blood work shows WBC of 8.5, hemoglobin 10.1, sodium 134, creatinine 0.45, potassium 3.9. DISCHARGE DIAGNOSES: 1. Cervical disease post surgery. 2. Deep venous thrombosis status post IVC filter. 3. Nonischemic cardiomyopathy with EF of 10% to 15%. She does have a LifeVest. 4. Insomnia. 5. Urinary tract infection, positive for Escherichia coli, treated with course for Rocephin and Ancef. RECOMMENDATIONS: As an outpatient at the rehab is to follow up with her neurosurgeon in 2 to 3 weeks. Until then, she should wear the collar whenever she is out of bed. She can take it off when she is in bed and when she is eating. Her diet should be full liquid diet. She can start aspirin on Wednesday and in the future some form of anticoagulation for her DVT after being cleared by her neurosurgeon. More than half an hour was spent to discharge this patient. Job ID: [id number]
== END 2019-06-09 20:05 | DRG 454 ==
LOC: ERS 21:53 → SURG A 06-03 00:25 → CCU 06-05 12:04 → SURG B 06-06 10:53
PROVIDERS: ADMIT Internal Medicine; ATTEND Internal Medicine
PROC: 06H03DZ Insertion of Intraluminal Device into Inferior Vena Cava, Percutaneous Approach (ICD-10-PCS; 2019-06-04)
PROC: B51C1ZA Fluoroscopy of Left Lower Extremity Veins using Low Osmolar Contrast, Guidance (ICD-10-PCS; 2019-06-04)
PROC: B54CZZA Ultrasonography of Left Lower Extremity Veins, Guidance (ICD-10-PCS; 2019-06-04)
PROC: 0RG20A0 Fusion of 2 or more Cervical Vertebral Joints with Interbody Fusion Device, Anterior Approach, Anterior Column, Open Approach (ICD-10-PCS; principal; 2019-06-08)
PROC: 0RG2071 Fusion of 2 or more Cervical Vertebral Joints with Autologous Tissue Substitute, Posterior Approach, Posterior Column, Open Approach (ICD-10-PCS; 2019-06-08)
PROC: 0RT30ZZ Resection of Cervical Vertebral Disc, Open Approach (ICD-10-PCS; 2019-06-08)
DX: M48.02 Spinal stenosis, cervical region (principal); I82.4Z2 Acute embolism and thrombosis of unspecified deep veins of left distal lower extremity; N13.6 Pyonephrosis; G95.89 Other specified diseases of spinal cord; I42.0 Dilated cardiomyopathy; N17.9 Acute kidney failure, unspecified; E03.9 Hypothyroidism, unspecified; K21.9 Gastro-esophageal reflux disease without esophagitis; F41.9 Anxiety disorder, unspecified; F32.9 Major depressive disorder, single episode, unspecified; F20.9 Schizophrenia, unspecified; N18.1 Chronic kidney disease, stage 1; I25.10 Atherosclerotic heart disease of native coronary artery without angina pectoris; I34.0 Nonrheumatic mitral (valve) insufficiency; G47.00 Insomnia, unspecified; B96.20 Unspecified Escherichia coli [E. coli] as the cause of diseases classified elsewhere; E87.6 Hypokalemia; Z74.01 Bed confinement status; Z90.710 Acquired absence of both cervix and uterus
CPT/HCPCS: 36415; 37191; 72125; 72141; 72146; 74177; 76000; 76770; 76942; 80048; 80053; 81001; 82274; 82306; 82570; 83735; 83880; 84156; 84166; 84484; 85014; 85018; 85025; 85610; 85730; 86850; 86900; 86901; 87077; 87086; 87186; 93005; 93306; 93798; 93970; 94664; C1713; C1768; C1769; C1776; C1880; J0131; J0690; J0696; J1644; J1650; J1885; J2001; J2250; J2405; J2704; J3010; J3370; J3475; J3490; Q9966; Q9967

== ENCOUNTER 2019-10-23 12:41 | Outpatient (CLI) | payer MEDICARE ==
--- NOTE | 2019-10-23 13:18 | RAD ---
EXAM: XR Cerv Sp Ap Lat STANDARD PROVIDED CLINICAL HISTORY: Cervical HNP with myelopathy. History of cervical spine surgery. COMPARISON: None FINDINGS: There is evidence of posterior as well as anterior cervical fusion. Anterior plate and screws transfi x the C3-C7 levels with bipedicular screws and posterior rods also transfixing these levels. Laminectomy defects are seen posteriorly, and there are also intradiscal prostheses at these levels. No hardware complication is seen. Mild degenerative changes are seen at the C2-3 level with mild narrowing of intervertebral disc space and osteophytes present. There is suggestion of trace retrolis thesis of C2 on C3. Degenerative changes are seen in the limited visualized upper thoracic spine. Prevertebral soft tissues have a normal appearance. Vascular calcifications are seen in the aortic ar ch. IMPRESSION: Postoperative changes cervical spine as described above with degenerative changes at the C2-3 level.
== END 2019-10-23 12:42 | disposition home or self-care (01) ==
LOC: TBSIIMAG 12:41
PROVIDERS: ATTEND Neurological Surgery
DX: M50.00 Cervical disc disorder with myelopathy, unspecified cervical region (principal); M47.12 Other spondylosis with myelopathy, cervical region; Z98.1 Arthrodesis status
CPT/HCPCS: 72040

== ENCOUNTER 2022-09-11 08:00 | Outpatient (CLI) | payer OTHER, MEDICAID | END 2022-09-11 08:01 | disposition home or self-care (01) | LOC: TBSIIMAG 08:00 | PROVIDERS: ATTEND Surgery | DX: S22.089A Unspecified fracture of T11-T12 vertebra, initial encounter for closed fracture (principal) | CPT/HCPCS: 72070; 72100 ==

== ENCOUNTER 2023-06-20 08:51 | Observation (INO) | payer OTHER, MEDICAID ==
[~2023-06-20 08:51] MED LIST changes: -ISOVUE-370 76%-LOCM 1 ML ONE; +Iopamidol-370 76% 500 ML MDV (1 ML CHARGE) ONE
[2023-06-20] MEDS ORDERED: methylPREDNISolone Sod Succ/PF 125 MG/2 ML VIAL ONE (09:01)
[2023-06-20] MEDS ORDERED: diphenhydrAMINE 50 MG/ML VIAL ONE (09:01)
[2023-06-20] MEDS ORDERED: Famotidine/PF 20 mg/2ml Vial ONE (09:01)
[2023-06-20] MEDS ORDERED: hydrALAZINE 20 MG/ML VIAL SLOW IVP PRN (09:10)
[2023-06-20] MEDS ORDERED: Ondansetron PF 4 MG/2 ML Vial IVP PRN (09:10)
[2023-06-20] MEDS ORDERED: Ipratropium/Albuterol 3 ML NEB NEB PRN (09:10)
[2023-06-20] MEDS ORDERED: Phytonadione 10 MG/ML AMP ONE (09:17)
[2023-06-20] MEDS ORDERED: Boostrix 0.5 ML (Tdap) VIAL (>/=7 yrs of age) ONE (09:30)
[2023-06-20] MEDS ORDERED: CEFAZOLIN 2 GM VIAL ONE (09:30)
[2023-06-20 09:52] LABS: #Eosinphils 0.1 thou/uL (0.0-0.7); #Monocytes 0.3 thou/uL (0.11-0.59); %Basophils 0.5 % (0.0-1.0); %Eosinophils 1.3 % (0.0-10.0); %Lymphocytes 29.2 % (21.0-51.0); %Monocytes 5.3 % (0.0-10.0); %Neutrophils 63.4 % (42.0-75.0); Hemoglobin 10.7 g/dL (12.0-16.0); Mean Corpuscular HGB CONC 32.4 g/dL (32.0-36.0); Mean Corpuscular Hemoglobin 31.6 pg (27.0-31.0); Mean Corpuscular Volume 97.3 fl (78.0-98.0); Mean Platelet Volume 10.1 fL (7.4-10.4); Platelet Count 145 10x3/uL (130-400); RBC Distribution Width 13.7 % (11.5-14.5); Red Blood Cell (RBC) Count 3.39 mill/uL (4.20-5.40); White Blood Cell (WBC) Count 6.4 10x3/uL (4.8-10.8)
[2023-06-20] MEDS ORDERED: Acetaminophen 500 MG TAB PO SCH (10:00)
[2023-06-20] MEDS: Sodium Chloride 0.9% 1,000 ML IV SCH ×2 (10:00→21:04)
[2023-06-20 10:06] LABS: INR-International Normal Ratio 1.2; PTT 28.8 sec (22.9-36.1); Prothrombin Time 15.8 sec (12.0-14.7)
[2023-06-20 10:14] LABS: ALT (SGPT) 11 U/L (8-55); AST (SGOT) 15 U/L (5-34); Albumin 2.8 g/dL (3.4-4.8); Alkaline Phosphatase 57 U/L (40-110); Anion Gap 10 mmol/L (10-20); BUN (Urea Nitrogen) 13 mg/dL (9.8-20.1); Bilirubin, Total 0.5 mg/dL (0.2-1.2); Calc. Creatinine Clearance 0 mL/min (70-130); Calcium 7.8 mg/dL (7.8-10.44); Carbon Dioxide 27 mmol/L (23-31); Chloride 104 mmol/L (98-107); Estimated GFR 96; Glucose 79 mg/dL (83-110); Potassium 4.5 mmol/L (3.5-5.1); Protein, Total 4.8 g/dL (5.8-8.1); Sodium 136 mmol/L (136-145)
[2023-06-20] MEDS ORDERED: Acetaminophen 500 MG TAB ONE (13:12)
[2023-06-20] MEDS: Acetaminophen 500 MG TAB PO SCH ×2 (13:45→20:59)
[2023-06-20 14:34] LABS: #Monocytes 0.8 thou/uL (0.11-0.59); #Neutrophils 10.8 thou/uL (1.40-6.50); %Basophils 0.3 % (0.0-1.0); %Eosinophils 0.1 % (0.0-10.0); %Lymphocytes 13.7 % (21.0-51.0); %Monocytes 5.8 % (0.0-10.0); %Neutrophils 79.9 % (42.0-75.0); Hematocrit 33.5 % (36.0-47.0); Hemoglobin 10.8 g/dL (12.0-16.0); Mean Corpuscular HGB CONC 32.2 g/dL (32.0-36.0); Mean Corpuscular Hemoglobin 31.2 pg (27.0-31.0); Mean Corpuscular Volume 96.8 fl (78.0-98.0); Mean Platelet Volume 10.3 fL (7.4-10.4); Platelet Count 167 10x3/uL (130-400); RBC Distribution Width 13.8 % (11.5-14.5); Red Blood Cell (RBC) Count 3.46 mill/uL (4.20-5.40); White Blood Cell (WBC) Count 13.5 10x3/uL (4.8-10.8)
[2023-06-20 14:57] LABS: Anion Gap 13 mmol/L (10-20); BUN (Urea Nitrogen) 14 mg/dL (9.8-20.1); Calc. Creatinine Clearance 0 mL/min (70-130); Calcium 8.2 mg/dL (7.8-10.44); Carbon Dioxide 26 mmol/L (23-31); Chloride 103 mmol/L (98-107); Estimated GFR 93; Glucose 101 mg/dL (83-110); Potassium 4.2 mmol/L (3.5-5.1); Sodium 138 mmol/L (136-145)
[2023-06-20 16:20] VITALS: BMI 17.2
[2023-06-20] MEDS ORDERED: Morphine 2 MG/ML VIAL SLOW IVP PRN (18:25)
[2023-06-20] MEDS ORDERED: Morphine 2 MG/ML VIAL SLOW IVP SCH (18:30)
[2023-06-20] MEDS ORDERED: traMADol HCl 50 MG TAB PO PRN (18:37)
[2023-06-20] MEDS: Melatonin 3 MG TAB PO PRN (20:58)
[2023-06-20] MEDS: Famotidine/PF 20 mg/2ml Vial SLOW IVP SCH (20:59)
[2023-06-20] MEDS: Cyclobenzaprine 10 MG TAB PO PRN (21:18)
[2023-06-21] MEDS: traMADol HCl 50 MG TAB PO SCH ×5 (00:33→23:58)
[2023-06-21] MEDS: Acetaminophen 500 MG TAB PO SCH ×4 (02:05→20:34)
[2023-06-21 03:16] LABS: Amphetamine Not Detected (NotDetected); Barbiturates Screen Not Detected (NotDetected); Benzodiazepine Screen Detected (NotDetected); Cocaine Metabolite Screen Not Detected (NotDetected); Methadone Not Detected (NotDetected); Methamphetamine Not Detected (NotDetected); Opiate Screen Not Detected (NotDetected); Oxycodone Screen Not Detected (NotDetected); Phencyclidine (PCP) Not Detected (NotDetected); THC/Cannabinoid Screen Not Detected (NotDetected); Tricyclic Screen Not Detected (NotDetected)
[2023-06-21] MEDS: Sodium Chloride 0.9% 1,000 ML IV SCH (05:26)
[2023-06-21 06:26] LABS: #Eosinphils 0.2 thou/uL (0.0-0.7); #Monocytes 0.6 thou/uL (0.11-0.59); #Neutrophils 3.6 thou/uL (1.40-6.50); %Basophils 0.5 % (0.0-1.0); %Eosinophils 2.5 % (0.0-10.0); %Lymphocytes 39.5 % (21.0-51.0); %Monocytes 8.8 % (0.0-10.0); %Neutrophils 48.6 % (42.0-75.0); Hematocrit 30.8 % (36.0-47.0); Mean Corpuscular HGB CONC 32.5 g/dL (32.0-36.0); Mean Corpuscular Hemoglobin 31.3 pg (27.0-31.0); Mean Corpuscular Volume 96.3 fl (78.0-98.0); Mean Platelet Volume 10.6 fL (7.4-10.4); Platelet Count 148 10x3/uL (130-400); RBC Distribution Width 13.7 % (11.5-14.5); White Blood Cell (WBC) Count 7.3 10x3/uL (4.8-10.8)
[2023-06-21 06:56] LABS: Anion Gap 9 mmol/L (10-20); BUN (Urea Nitrogen) 10 mg/dL (9.8-20.1); Calc. Creatinine Clearance 63 mL/min (70-130); Calcium 8.1 mg/dL (7.8-10.44); Carbon Dioxide 25 mmol/L (23-31); Chloride 108 mmol/L (98-107); Estimated GFR 96; Glucose 74 mg/dL (83-110); Potassium 3.8 mmol/L (3.5-5.1); Sodium 138 mmol/L (136-145)
[2023-06-21 06:57] LABS: INR-International Normal Ratio 1.1
[2023-06-21] MEDS: Famotidine/PF 20 mg/2ml Vial SLOW IVP SCH ×2 (09:03→20:35)
[2023-06-21] MEDS: Cyclobenzaprine 10 MG TAB PO PRN (09:07)
[2023-06-21] MEDS ORDERED: Furosemide 40 MG/4 ML VIAL SLOW IVP SCH (17:00)
[2023-06-21] MEDS: Melatonin 3 MG TAB PO PRN (23:58)
[2023-06-22] MEDS: Acetaminophen 500 MG TAB PO SCH ×2 (02:41→08:22)
[2023-06-22 05:51] LABS: INR-International Normal Ratio 1.1; Prothrombin Time 15.1 sec (12.0-14.7)
[2023-06-22 05:52] LABS: PTT 29.7 sec (22.9-36.1)
[2023-06-22] MEDS: traMADol HCl 50 MG TAB PO SCH (05:59)
[2023-06-22] MEDS ORDERED: Lorazepam 1 MG TAB PO PRN (06:37)
[2023-06-22] MEDS: Famotidine/PF 20 mg/2ml Vial SLOW IVP SCH (08:22)
[2023-06-22] MEDS ORDERED: Lansoprazole 3 MG/ML ORAL SUSPENSION PO SCH (09:00)
[2023-06-22] MEDS ORDERED: Furosemide 20 MG TAB PO SCH (09:00)
[2023-06-22 09:20] VITALS: BP 159/73; TEMP 97.8
[2023-06-22] MEDS ORDERED: Melatonin 3 MG TAB PO SCH (21:00)
== END 2023-06-22 10:00 ==
LOC: ERS 08:51 → ERHOLD 09:15 → SJJU 17:09
PROVIDERS: ADMIT Surgery; ATTEND Surgery
DX: S41.132A Puncture wound without foreign body of left upper arm, initial encounter (principal); K21.9 Gastro-esophageal reflux disease without esophagitis; F20.9 Schizophrenia, unspecified; F41.8 Other specified anxiety disorders; Z88.5 Allergy status to narcotic agent; Z91.018 Allergy to other foods; Z90.710 Acquired absence of both cervix and uterus
CPT/HCPCS: 71045; 71260; 73706; 74177; 80048 ×2; 80053; 80306; 83605; 85025 ×3; 85610 ×3; 85730 ×3; 86850; 86900; 86901; 90471; 90715; 96365; 96375 ×3; 96376 ×2; 97535; 99285; G0378 ×4; 36415; 51798; G0390; J1200; J1940; J2405; J2930; J3430; J7050; Q9967; S0028

== ENCOUNTER 2024-09-23 23:06 | Inpatient (IN) | payer OTHER, SELFPAY ==
[2024-09-23] MEDS ORDERED: fentaNYL 50 mcg/mL 1 mL Vial ONE (23:15)
[2024-09-23 23:21] LABS: #Basophils Less than 0.03 10x3/uL (0.0-0.2); %Basophils 0.2 % (0.0-1.0); %Eosinophils 0.5 % (0.0-10.0); %Lymphocytes 8.7 % (21.0-51.0); %Monocytes 9.5 % (0.0-10.0); %Neutrophils 80.7 % (42.0-75.0); Hematocrit 36.9 % (36.0-47.0); Hemoglobin 12.3 g/dL (12.0-16.0); Mean Corpuscular HGB CONC 33.3 g/dL (32.0-36.0); Mean Corpuscular Hemoglobin 28.6 pg (27.0-31.0); Mean Corpuscular Volume 85.8 fL (78.0-98.0); Mean Platelet Volume 9.4 fL (7.4-10.4); Platelet Count 320 10x3/uL (130-400); RBC Distribution Width 17.2 % (11.5-14.5)
[2024-09-23] MEDS ORDERED: Etomidate 40 MG (20 mL) VIAL ONE (23:24)
[2024-09-23] MEDS ORDERED: Rocuronium Bromide 10 MG/ML (10ML VIAL) ONE (23:25)
[2024-09-23 23:35] LABS: ALT (SGPT) 22 U/L (8-55); AST (SGOT) 42 U/L (5-34); Alkaline Phosphatase 96 U/L (40-110); Anion Gap 21 mmol/L (10-20); BUN (Urea Nitrogen) 10 mg/dL (9.8-20.1); CK (CPK) 200 U/L (29-168); Calc. Creatinine Clearance 0 mL/min (70-130); Calcium 9.1 mg/dL (7.8-10.44); Carbon Dioxide 20 mmol/L (23-31); Chloride 98 mmol/L (98-107); Estimated GFR 94; Globulin 3.8 g/dL (2.4-3.5); Glucose 122 mg/dL (83-110); Lipase 24 U/L (8-78); Potassium 3.5 mmol/L (3.5-5.1); Protein, Total 6.8 g/dL (5.8-8.1); Sodium 135 mmol/L (136-145)
[2024-09-23 23:41] LABS: Troponin I 0.018 ng/mL (< 0.028)
[2024-09-23] MEDS ORDERED: levETIRAcetam 500 MG (5 mL) VIAL ONE (23:42)
[2024-09-23] MEDS ORDERED: Propofol 1,000 MG/100 ML VIAL IV ONE (23:42)
[2024-09-23 23:44] LABS: Actual Bicarbonate (HCO3a) 20.3 mEq/L (22-28); Analyzer IN Cardio ER; Base Excess (BEa) 0.1 mEq/L (-2.0 to +3.0); Calcium, Ionized (arterial) 1.13 mmol/L (1.12-1.30); Carboxyhemoglobin (COHb) 0.5 gm% (0.0-3.0); Hematocrit-ABG 35 % (36.0-47.0); O2 Tension (PaO2), arterial 162.8 mmHg (> 70.0); Potassium - ABG Lab 3.17 mmol/L (3.70-5.30); pH, Arterial 7.584 (7.35-7.45)
[2024-09-23 23:53] LABS: Puncture Site Left Brachial artery
[2024-09-24 00:11] LABS: INR-International Normal Ratio 1.2; PTT 29.3 sec (22.9-36.1); Prothrombin Time 14.7 sec (12.0-14.7)
[2024-09-24 00:19] LABS: Bacteria/HPF None Seen HPF (None Seen); Bilirubin Negative (Negative); Blood, Urine Negative (Negative); CAUTI Indications for Culture Alt mental st,lethar; Clarity Clear (Clear); Glucose, Urine (Dipstick) Normal (Negative); Ketone, Urine 20 mg/dL (Negative); Leukocyte Negative Leu/uL (Negative); Nitrite Negative (Negative); Protein, Urine (Dipstick) Negative (Neg-Trace); RBC/HPF 0-3 HPF (0-3); Specific Gravity, Urine 1.006 (1.002-1.036); Squamous Epithelial None Seen HPF (0-3); Urobilinogen Normal mg/dL (Less than 2); pH, Urine 6.5 (5.0-9.0)
[2024-09-24 00:24] LABS: Urine Culture Reflex No No
[2024-09-24 00:28] LABS: Amphetamine Not Detected (NotDetected); Barbiturates Screen Not Detected (NotDetected); Benzodiazepine Screen Not Detected (NotDetected); Cocaine Metabolite Screen Not Detected (NotDetected); Methadone Not Detected (NotDetected); Methamphetamine Not Detected (NotDetected); Opiate Screen Not Detected (NotDetected); Oxycodone Screen Not Detected (NotDetected); Phencyclidine (PCP) Not Detected (NotDetected); THC/Cannabinoid Screen Not Detected (NotDetected); Tricyclic Screen Not Detected (NotDetected)
[2024-09-24] MEDS ORDERED: Lorazepam 2 MG/ML VIAL ONE (01:33)
[2024-09-24] MEDS ORDERED: Electrolyte Replacement Protocol 1 EACH IVPB PRN (02:27)
[2024-09-24] MEDS ORDERED: Acetaminophen 650 MG Suppository PR PRN (02:27)
[2024-09-24] MEDS ORDERED: Ipratropium/Albuterol 3 ML NEB NEB PRN (02:27)
[2024-09-24] MEDS ORDERED: Ventilator Sedation Protocol 1 EACH FS SCH (02:30)
[2024-09-24] MEDS ORDERED: Labetalol HCl 100 MG/20 ML VIAL SLOW IVP PRN (02:33)
[2024-09-24] MEDS ORDERED: Lorazepam 2 MG/ML VIAL SLOW IVP PRN (02:45)
[2024-09-24] MEDS ORDERED: Propofol BOLUS 1,000 MG/100 ML VIAL IV PRN (02:45)
[2024-09-24] MEDS ORDERED: Fentanyl BOLUS 250 ML IVPB PRN (02:45)
[2024-09-24] MEDS ORDERED: DISCONTINUE PREVIOUS NARCOTIC PAIN MEDICATIONS AND BENZODIAZEPINES FS SCH (02:45)
[2024-09-24] MEDS ORDERED: Morphine 2 MG/ML VIAL SLOW IVP PRN (02:45)
[2024-09-24] MEDS: Fentanyl CADD 100 ML IV SCH (03:41)
[2024-09-24] MEDS: Propofol 1,000 MG/100 ML VIAL IV PRN (03:42)
[2024-09-24] MEDS: Thiamine HCl 200 MG/2 ML VIAL SLOW IVP SCH (03:42)
[2024-09-24] MEDS: D5 LR w/20 mEq KCL 1,000 ML IV SCH (04:33)
[2024-09-24 05:28] LABS: Phosphorus 2.1 mg/dL (2.3-4.7)
[2024-09-24 06:11] LABS: Thyroid Stimulating Hormone 3.7448 uIU/mL (0.35-4.94)
[2024-09-24 06:51] LABS: Vitamin D, 25 Hydroxy 28.2 ng/ml (> 30.0)
[2024-09-24] MEDS: Potassium Chloride 10 MEQ in Premix 1 BAG IVPB SCH (08:00)
[2024-09-24] MEDS: Famotidine/PF 20 mg/2ml Vial SLOW IVP SCH (08:40)
[2024-09-24] MEDS: levETIRAcetam 500 MG (5 mL) VIAL SLOW IVP SCH (08:40)
[2024-09-24] MEDS: Magnesium 2 GM/50 ML(in water) 2 GM in Premix 1 BAG IVPB SCH (08:45)
[2024-09-24] MEDS: Enoxaparin 40 MG (0.4 mL) SYRINGE SC SCH (08:45)
[2024-09-24] MEDS ORDERED: Electrolyte Replacement Protocol FS PRN (11:45)
[2024-09-24] MEDS: Thiamine 100 MG TAB PO SCH (21:13)
[2024-09-25 04:05] LABS: #Basophils 0.05 10x3/uL (0.0-0.2); %Basophils 0.7 % (0.0-1.0); %Eosinophils 3.6 % (0.0-10.0); %Lymphocytes 29.8 % (21.0-51.0); %Monocytes 8.9 % (0.0-10.0); %Neutrophils 56.6 % (42.0-75.0); Hematocrit 30.2 % (36.0-47.0); Hemoglobin 9.7 g/dL (12.0-16.0); Mean Corpuscular HGB CONC 32.1 g/dL (32.0-36.0); Mean Corpuscular Hemoglobin 28.8 pg (27.0-31.0); Mean Corpuscular Volume 89.6 fL (78.0-98.0); Mean Platelet Volume 9.6 fL (7.4-10.4); Platelet Count 279 10x3/uL (130-400); RBC Distribution Width 17.4 % (11.5-14.5); Red Blood Cell (RBC) Count 3.37 mill/uL (4.20-5.40)
[2024-09-25 04:55] LABS: ALT (SGPT) 15 U/L (8-55); AST (SGOT) 18 U/L (5-34); Albumin 2.1 g/dL (3.4-4.8); Alkaline Phosphatase 75 U/L (40-110); Anion Gap 11 mmol/L (10-20); BUN (Urea Nitrogen) 4 mg/dL (9.8-20.1); Bilirubin, Total 0.5 mg/dL (0.2-1.2); Calc. Creatinine Clearance 108 mL/min (70-130); Calcium 7.9 mg/dL (7.8-10.44); Carbon Dioxide 24 mmol/L (23-31); Chloride 108 mmol/L (98-107); Estimated GFR 97; Globulin 2.8 g/dL (2.4-3.5); Glucose 105 mg/dL (83-110); Potassium 3.6 mmol/L (3.5-5.1); Protein, Total 4.9 g/dL (5.8-8.1); Sodium 139 mmol/L (136-145)
[2024-09-25 07:34] LABS: Actual Bicarbonate (HCO3a) 25.7 mEq/L (22-28); Base Excess (BEa) 3.7 mEq/L (-2.0 to +3.0); CO2 Tension 30.1 mmHg (35.0-45.0); Carboxyhemoglobin (COHb) 0.1 gm% (0.0-3.0); Hematocrit-ABG 30 % (36.0-47.0); Hemoglobin (Hb) 10.1 g/dL (12.0-16.0); O2 Tension (PaO2), arterial 129.1 mmHg (> 70.0)
[2024-09-25 07:35] LABS: ALV-art Gradient 47.175 mmHg (0-20); Puncture Site Right Radial artery
[2024-09-25] MEDS: Lidocaine Viscous Sol 2% 15 ml UD Cup SSP SCH ×2 (15:38→21:12)
[2024-09-25] MEDS: Famotidine 20 MG TAB PO SCH (21:10)
[2024-09-25] MEDS: Simethicone Chewable 80 MG TAB PO PRN (21:12)
[2024-09-25 21:46] LABS: Anion Gap 12 mmol/L (10-20); BUN (Urea Nitrogen) 6 mg/dL (9.8-20.1); Calc. Creatinine Clearance 104 mL/min (70-130); Calcium 8.2 mg/dL (7.8-10.44); Carbon Dioxide 23 mmol/L (23-31); Chloride 108 mmol/L (98-107); Estimated GFR 96; Glucose 123 mg/dL (83-110); Magnesium 1.9 mg/dL (1.6-2.6); Sodium 139 mmol/L (136-145)
[2024-09-25] MEDS: Magnesium 2 GM/50 ML(in water) 2 GM in Premix 1 BAG IVPB SCH (21:58)
[2024-09-25] MEDS: Melatonin 3 MG TAB PO SCH (23:11)
[2024-09-25] MEDS: traMADol HCl 50 MG TAB PO SCH (23:12)
[2024-09-26 04:59] LABS: #Basophils 0.07 10x3/uL (0.0-0.2); %Basophils 1.1 % (0.0-1.0); %Eosinophils 4.1 % (0.0-10.0); %Lymphocytes 31.3 % (21.0-51.0); %Monocytes 6.9 % (0.0-10.0); %Neutrophils 56.3 % (42.0-75.0); Hematocrit 28.8 % (36.0-47.0); Hemoglobin 9.3 g/dL (12.0-16.0); Mean Corpuscular HGB CONC 32.3 g/dL (32.0-36.0); Mean Corpuscular Hemoglobin 28.9 pg (27.0-31.0); Mean Corpuscular Volume 89.4 fL (78.0-98.0); Mean Platelet Volume 9.4 fL (7.4-10.4); Platelet Count 297 10x3/uL (130-400); RBC Distribution Width 17.2 % (11.5-14.5); Red Blood Cell (RBC) Count 3.22 mill/uL (4.20-5.40)
[2024-09-26 05:33] LABS: ALT (SGPT) 15 U/L (8-55); AST (SGOT) 19 U/L (5-34); Albumin 2.1 g/dL (3.4-4.8); Alkaline Phosphatase 81 U/L (40-110); Anion Gap 12 mmol/L (10-20); BUN (Urea Nitrogen) 5 mg/dL (9.8-20.1); Bilirubin, Total 0.6 mg/dL (0.2-1.2); Calc. Creatinine Clearance 124 mL/min (70-130); Carbon Dioxide 22 mmol/L (23-31); Chloride 108 mmol/L (98-107); Estimated GFR 100; Glucose 87 mg/dL (83-110); Potassium 3.8 mmol/L (3.5-5.1); Protein, Total 5.1 g/dL (5.8-8.1); Sodium 138 mmol/L (136-145)
[2024-09-26] MEDS: DC Sedation Protocol FS ONE (11:22)
[2024-09-26] MEDS: Carbidopa/Levodopa 10-100 mg Tablet PO SCH (15:01)
[2024-09-26] MEDS: traMADol HCl 50 MG TAB PO PRN (18:09)
[2024-09-26] MEDS: Furosemide 20 MG TAB PO SCH (20:32)
[2024-09-26] MEDS: Acetaminophen 650 MG/20.3 ML UDCUP PO PRN (20:34)
[2024-09-27 04:46] LABS: #Basophils 0.05 10x3/uL (0.0-0.2); %Basophils 0.8 % (0.0-1.0); %Eosinophils 4.4 % (0.0-10.0); %Lymphocytes 29.4 % (21.0-51.0); %Neutrophils 56.8 % (42.0-75.0); Hematocrit 35.6 % (36.0-47.0); Hemoglobin 11.4 g/dL (12.0-16.0); Mean Corpuscular Hemoglobin 28.1 pg (27.0-31.0); Mean Corpuscular Volume 87.7 fL (78.0-98.0); Mean Platelet Volume 9.6 fL (7.4-10.4); Platelet Count 339 10x3/uL (130-400); RBC Distribution Width 17.2 % (11.5-14.5); Red Blood Cell (RBC) Count 4.06 mill/uL (4.20-5.40)
[2024-09-27 05:11] LABS: ALT (SGPT) 10 U/L (8-55); AST (SGOT) 22 U/L (5-34); Albumin 2.4 g/dL (3.4-4.8); Alkaline Phosphatase 98 U/L (40-110); Anion Gap 12 mmol/L (10-20); BUN (Urea Nitrogen) 5 mg/dL (9.8-20.1); Bilirubin, Total 0.6 mg/dL (0.2-1.2); Calc. Creatinine Clearance 103 mL/min (70-130); Calcium 8.4 mg/dL (7.8-10.44); Carbon Dioxide 22 mmol/L (23-31); Chloride 108 mmol/L (98-107); Estimated GFR 95; Globulin 3.5 g/dL (2.4-3.5); Glucose 86 mg/dL (83-110); Magnesium 1.9 mg/dL (1.6-2.6); Potassium 3.3 mmol/L (3.5-5.1); Protein, Total 5.9 g/dL (5.8-8.1); Sodium 139 mmol/L (136-145)
[2024-09-27] MEDS: Levothyroxine Sodium 25 MCG TAB PO SCH (06:14)
[2024-09-27] MEDS: Sertraline 25 MG TAB PO SCH (08:54)
[2024-09-27] MEDS: Aspirin 81 mg Enteric Coated Tablet PO SCH (08:54)
[2024-09-27] MEDS: Pantoprazole DR 40 MG TAB PO SCH (08:55)
[2024-09-27] MEDS: Losartan 25 MG TAB PO SCH (08:55)
[2024-09-27] MEDS: Potassium Chloride 20 MEQ TAB PO SCH ×2 (08:56→17:15)
[2024-09-27] MEDS: Magnesium 2 GM/50 ML(in water) 2 GM in Premix 1 BAG IVPB SCH (08:57)
[2024-09-27] MEDS: Mirtazapine 30 MG TAB PO SCH (20:53)
[2024-09-28 04:47] LABS: Anion Gap 13 mmol/L (10-20); BUN (Urea Nitrogen) 5 mg/dL (9.8-20.1); Calc. Creatinine Clearance 108 mL/min (70-130); Calcium 8.4 mg/dL (7.8-10.44); Carbon Dioxide 21 mmol/L (23-31); Chloride 108 mmol/L (98-107); Estimated GFR 96; Glucose 84 mg/dL (83-110); Potassium 3.6 mmol/L (3.5-5.1); Sodium 138 mmol/L (136-145)
[2024-09-28] MEDS: levETIRAcetam 500 MG TAB PO SCH (09:44)
[2024-09-28] MEDS: FLU (Fluad Triv) TS24-25 (65UP)/MF59C/PF 45 MCG/0.5 ML Syringe IM ONE (12:58)
[2024-09-28 18:46] VITALS: BMI 23.8
[2024-09-29 07:41] VITALS: BMI 23.8
[2024-09-30 05:45] LABS: Hematocrit 35.8 % (36.0-47.0); Hemoglobin 11.8 g/dL (12.0-16.0); Mean Corpuscular Hemoglobin 28.6 pg (27.0-31.0); Mean Corpuscular Volume 86.9 fL (78.0-98.0); Mean Platelet Volume 9.6 fL (7.4-10.4); Platelet Count 394 10x3/uL (130-400); RBC Distribution Width 17.1 % (11.5-14.5); Red Blood Cell (RBC) Count 4.12 mill/uL (4.20-5.40)
[2024-09-30 05:50] LABS: Anion Gap 14 mmol/L (10-20); BUN (Urea Nitrogen) 14 mg/dL (9.8-20.1); Calc. Creatinine Clearance 82 mL/min (70-130); Calcium 8.6 mg/dL (7.8-10.44); Carbon Dioxide 23 mmol/L (23-31); Chloride 104 mmol/L (98-107); Estimated GFR 92; Glucose 90 mg/dL (83-110); Potassium 3.4 mmol/L (3.5-5.1); Sodium 138 mmol/L (136-145)
[2024-09-30] MEDS: Potassium Chloride 20 MEQ TAB PO SCH (09:38)
[2024-10-02 14:52] VITALS: BP 129/78; TEMP 97.3
== END 2024-10-02 14:41 | DRG 100 ==
LOC: ERS 23:06 → CCU 23:31 → PCU 09-26 17:33 → T4-B 10-01 21:41
PROVIDERS: ADMIT Internal Medicine; ATTEND Family Medicine
PROC: 4A00X4Z Measurement of Central Nervous Electrical Activity, External Approach (ICD-10-PCS; principal; 2024-09-24)
PROC: 0BH17EZ Insertion of Endotracheal Airway into Trachea, Via Natural or Artificial Opening (ICD-10-PCS; 2024-09-24)
PROC: 5A1945Z Respiratory Ventilation, 24-96 Consecutive Hours (ICD-10-PCS; 2024-09-24)
DX: R56.9 Unspecified convulsions (principal); G93.41 Metabolic encephalopathy; J96.00 Acute respiratory failure, unspecified whether with hypoxia or hypercapnia; S42.202A Unspecified fracture of upper end of left humerus, initial encounter for closed fracture; I42.9 Cardiomyopathy, unspecified; I50.22 Chronic systolic (congestive) heart failure; I42.8 Other cardiomyopathies; F41.9 Anxiety disorder, unspecified; F20.9 Schizophrenia, unspecified; I44.7 Left bundle-branch block, unspecified; W19.XXXA Unspecified fall, initial encounter; E87.6 Hypokalemia; I11.0 Hypertensive heart disease with heart failure; M48.02 Spinal stenosis, cervical region; D63.8 Anemia in other chronic diseases classified elsewhere; Z95.810 Presence of automatic (implantable) cardiac defibrillator; Z86.718 Personal history of other venous thrombosis and embolism; Z99.3 Dependence on wheelchair; Z79.899 Other long term (current) drug therapy
CPT/HCPCS: 23650; 31500; 36415; 36416; 36600; 51702; 70450; 71045; 72125; 72170; 80048; 80053; 80306; 81001; 82306; 82550; 82607; 82805; 83690; 83735; 83880; 84100; 84146; 84443; 84484; 85025; 85027; 85610; 85730; 93005; 93010; 94002; 94003; 96365; 96366; 96367; 96375; J1650; J1953; J2060; J2704; J3010; J3411; J3475; J3480; J3490